=== PATIENT | female | born 1950 | race Two or more races ===

== ENCOUNTER 2019-01-30 17:59 | Inpatient (IN) | payer SELFPAY ==
[~2019-01-30] VITALS: Ht 149.9 cm; Wt 56.0 kg
[2019-01-30] MEDS ORDERED: METFORMIN HCL500 M1 ORAL (18:03)
[2019-01-30 18:13] VITALS: BP 128/53
--- NOTE | 2019-01-30 18:13 | NUR ---
ED Nurse Note: Pt walked in due to abd. pain with chills x 1 day. Also c/o swelling of her left foot on and off since surgery back in 2011 per family member. Denies CP and SOB. AAO x4, ambulates with steady gait. Left foot with mild swelling but non pitting.
--- NOTE | 2019-01-30 18:28 | Emergency Room Report ---
History of Present Illness General Chief Complaint: Abdominal Pain Source: Patient Present Illness HPI Patient is a 68-year-old female presents after increased epigastric abdominal pain. Patient states this began after eating a hamburger last night. Pain had been constant since then. Patient had prior history of gallstones. She reports having some subjective fever. She not been vomiting or having any diarrhea. She denies prior abdominal surgeries. Allergies: Coded Allergies: No Known Allergies (Unverified , 01/30/19) Patient History Past Medical History: see triage record Reviewed Nursing Documentation: PMH: Agreed; PSxH: Agreed Nursing Documentation-PMH Past Medical History: No History, Except For Hx Cardiac Problems: No Hx Hypertension: No Hx Pacemaker: No Hx Asthma: No Hx COPD: No Hx Diabetes: Yes Hx Cancer: No Hx Gastrointestinal Problems: No Hx Dialysis: No History Of Psychiatric Problem: No Hx Neurological Problems: No Hx Cerebrovascular Accident: No Hx Seizures: No Review of Systems All Other Systems: negative except mentioned in HPI Physical Exam Vital Signs Date Time Temp Pulse Resp B/P (MAP) Pulse Ox O2 Delivery O2 Flow Rate FiO2 01/30/19 18:03 99.1 78 16 142/69 (93) 95 Room Air Sp02 EP Interpretation: reviewed, normal General Appearance: normal inspection, well appearing, no apparent distress, alert Head: atraumatic ENT: normal ENT inspection, hearing grossly normal, normal voice Neck: normal inspection, full range of motion, supple, no bony tend Respiratory: normal inspection, lungs clear, normal breath sounds, no respiratory distress, no retraction, no wheezing Cardiovascular #1: regular rate, rhythm, no edema Gastrointestinal: normal inspection, normal bowel sounds, soft, no guarding, no hernia, tenderness - Tenderness to right upper abdomen Genitourinary: no CVA tenderness Musculoskeletal: normal inspection, back normal, normal range of motion Neurologic: normal inspection, alert, oriented x3, responsive, cage unloader III-XII nml as tested, speech normal Psychiatric: normal inspection, judgement/insight normal, mood/affect normal Medical Decision Making Diagnostic Impression: Primary Impression: Abdominal pain Qualified Codes: R10.13 - Epigastric pain Additional Impression: Choledocholithiasis ER Course Patient presented after persistent abdominal pain. Differential diagnoses included ischemic bowel, appendicitis, perforated viscus, cholecystitis, pancreatitis, abdominal aortic aneurysm, inferior myocardial infarction, viral gastroenteritis among others.patient was noted to have some persistent pain to the upper abdomen as well as guarding near the gallbladder. Abdominal ultrasound showed 13 mm CBD as well as dilated pancreatic duct. Patient was given pain medications.Patient was given IV Zosyn. Patient was noted to have a normal mental status. Patient does not appear to have cholangitis at this time. Dr. Guadarrama was contacted for inpatient surgical consult. Dr. Holcomb was contacted for inpatient management due to panel physician. Labs Test 01/30/19 18:45 White Blood Count 11.3 K/UL (4.8-10.8) Red Blood Count 4.12 M/UL (4.20-5.40) Hemoglobin 12.5 G/DL (12.0-16.0) Hematocrit 35.2 % (37.0-47.0) Mean Corpuscular Volume 86 FL (80-99) Mean Corpuscular Hemoglobin 30.3 PG (27.0-31.0) Mean Corpuscular Hemoglobin Concent 35.4 G/DL (32.0-36.0) Red Cell Distribution Width 11.9 % (11.6-14.8) Platelet Count 149 K/UL (150-450) Mean Platelet Volume 7.7 FL (6.5-10.1) Neutrophils (%) (Auto) 81.3 % (45.0-75.0) Lymphocytes (%) (Auto) 11.7 % (20.0-45.0) Monocytes (%) (Auto) 6.4 % (1.0-10.0) Eosinophils (%) (Auto) 0.2 % (0.0-3.0) Basophils (%) (Auto) 0.4 % (0.0-2.0) Urine Color Pale yellow Urine Appearance Clear Urine pH 6.5 (4.5-8.0) Urine Specific [place] 1.010 (1.005-1.035) Urine Protein Negative (NEGATIVE) Urine Glucose (UA) Negative (NEGATIVE) Urine Ketones Negative (NEGATIVE) Urine Blood 2+ (NEGATIVE) Urine Nitrite Negative (NEGATIVE) Urine Bilirubin Negative (NEGATIVE) Urine Urobilinogen Normal MG/DL (0.0-1.0) Urine Leukocyte Esterase 1+ (NEGATIVE) Urine RBC 2-4 /HPF (0 - 2) Urine WBC 0-2 /HPF (0 - 2) Urine Squamous Epithelial Cells Few /LPF (NONE/OCC) Urine Bacteria Few /HPF (NONE) Sodium Level 142 MMOL/L (136-145) Potassium Level 3.1 MMOL/L (3.5-5.1) Chloride Level 105 MMOL/L (98-107) Carbon Dioxide Level 29 MMOL/L (21-32) Anion Gap 8 mmol/L (5-15) Blood Urea Nitrogen 6 mg/dL (7-18) Creatinine 0.9 MG/DL (0.55-1.30) Estimat Glomerular Filtration Rate > 60 mL/min (>60) Glucose Level 137 MG/DL (74-106) Calcium Level 8.8 MG/DL (8.5-10.1) Total Bilirubin 0.5 MG/DL (0.2-1.0) Aspartate Amino Transf (AST/SGOT) 18 U/L (15-37) Alanine Aminotransferase (ALT/SGPT) 21 U/L (12-78) Alkaline Phosphatase 116 U/L (46-116) Troponin I 0.000 ng/mL (0.000-0.056) Total Protein 7.0 G/DL (6.4-8.2) Albumin 3.1 G/DL (3.4-5.0) Globulin 3.9 g/dL Albumin/Globulin Ratio 0.8 (1.0-2.7) Lipase 36 U/L (73-393) Last Vital Signs Date Time Temp Pulse Resp B/P (MAP) Pulse Ox O2 Delivery O2 Flow Rate FiO2 01/30/19 18:13 83 16 Room Air 01/30/19 18:13 99.1 128/53 99 Status: unchanged Disposition: ADMITTED INPATIENT Condition: Serious Dillon Edwards MD Jan 30, 2019 18:28
[2019-01-30] MEDS ORDERED: Morphine Sulfate 2mg/ml Inj(IV/IM USE ONLY) IVP ONE (18:30)
[2019-01-30 18:56] LABS: BASOPHILS % (AUTO) 0.4 % (0.0-2.0); EOSINOPHILS % (AUTO) 0.2 % (0.0-3.0); HEMATOCRIT 35.2 % (37.0-47.0); HEMOGLOBIN 12.5 G/DL (12.0-16.0); LYMPHOCYTES % (AUTO) 11.7 % (20.0-45.0); MEAN CORPUSCULAR VOLUME 86 FL (80-99); MONOCYTES % (AUTO) 6.4 % (1.0-10.0); NEUTROPHILS % (AUTO) 81.3 % (45.0-75.0); PLATELET COUNT 149 K/UL (150-450); RED BLOOD COUNT 4.12 M/UL (4.20-5.40); RED CELL DISTRIBUTION WIDTH 11.9 % (11.6-14.8); WHITE BLOOD COUNT 11.3 K/UL (4.8-10.8)
[2019-01-30 18:59] LABS: APPEARANCE,URINE CLEAR; BILIRUBIN, URINE NEGATIVE (NEGATIVE); COLOR,URINE PALE YELLOW; GLUCOSE, URINE (UA) NEGATIVE (NEGATIVE); KETONES,URINE NEGATIVE (NEGATIVE); LEUKOCYTE ESTERASE ,URINE 1+ (NEGATIVE); NITRITE,URINE NEGATIVE (NEGATIVE); PH,URINE 6.5 (4.5-8.0); PROTEIN,URINE NEGATIVE (NEGATIVE); UROBILINOGEN,URINE NORMAL MG/DL (0.0-1.0)
[2019-01-30 19:07] LABS: ANION GAP 8 mmol/L (5-15); BLOOD UREA NITROGEN 6 mg/dL (7-18); CALCIUM 8.8 MG/DL (8.5-10.1); CARBON DIOXIDE 29 MMOL/L (21-32); CHLORIDE 105 MMOL/L (98-107); CREATININE 0.9 MG/DL (0.55-1.30); POTASSIUM 3.1 MMOL/L (3.5-5.1); SODIUM 142 MMOL/L (136-145)
--- NOTE | 2019-01-30 19:10 | NUR ---
HAND-OFF: Report given to Aleksander CARRERO.
[2019-01-30 19:12] LABS: ALANINE AMINOTRANSFERASE 21 U/L (12-78); ALBUMIN 3.1 G/DL (3.4-5.0); ALBUMIN/GLOBULIN RATIO 0.8 (1.0-2.7); ALKALINE PHOSPHATASE 116 U/L (46-116); ASPARTATE AMINO TRANSFERASE 18 U/L (15-37); BILIRUBIN,TOTAL 0.5 MG/DL (0.2-1.0)
[2019-01-30] MEDS ORDERED: Piperacillin/Tazobactam 3.375 GM in NS 110 ML IVPB ONE (19:30)
--- NOTE | 2019-01-30 21:46 | NUR ---
NURSE NOTES: Telephone report received from ALISE Armijo (ED). Pt will be brought up to 301-2 soon.
[2019-01-30 21:50] VITALS: BP_SYST 132; BP_SYST 142; BP_DIAS 46; BP_DIAS 65
--- NOTE | 2019-01-30 21:50 | NUR ---
NURSE NOTES: Received pt from ED via gurney. Pt able to ambulate. Skin assessment done & skin intact. Oriented pt to facility. Pt a&ox4, Hungarian speaking only, in room air. Grand daughter at bedside. No s/s of acute distress & c/o 8/10 abdominal pain. VSS. Pt belongings checked & accounted for. IV site intact & S/L'd. Bed in lowest position, call light within reach. granddaughter to bring pt's home meds reyes. RN will call Dr. Holcomb for admission orders. Will continue to monitor. Addendum: 01/31/19 at 0013 by Delmi Pan RN @ 2230 informed of K level 3.1; new orders obtained.
--- NOTE | 2019-01-30 21:50 | NUR ---
ED Nurse Note: Pt admit to room 302-1, Pt is AO x 4times, VSS, on room air no distress. Report and belongings given to ALISE Awad.
--- NOTE | 2019-01-30 21:51 | NUR ---
NURSE NOTES: Sondra (granddaughter) contact #
[2019-01-30] MEDS ORDERED: ASPIRIN81 M3 PO (22:48)
[2019-01-30] MEDS ORDERED: LIPITOR80 MG ORAL (22:49)
[2019-01-30] MEDS ORDERED: TYLENOL325 M1 PO (22:50)
[2019-01-30] MEDS ORDERED: Morphine Sulfate 2mg/ml Inj(IV/IM USE ONLY) IVP PRN (23:15)
[2019-01-30] MEDS: D5NS 1,000 ML IV SCH (23:35)
[2019-01-31] VITALS (7 sets, daily range): BP systolic 94–117; BP diastolic 44–66
[2019-01-31] MEDS: Piperacillin/Tazobactam 3.375 GM in NS 110 ML IVPB SCH ×3 (05:46→23:30)
[2019-01-31] MEDS: Pantoprazole Inj IVP SCH (05:46)
[2019-01-31] MEDS: NovoLOG Insulin Flexpen SUBQ SCH ×4 (05:53→20:25)
[2019-01-31 06:25] LABS: BASOPHILS % (AUTO) 0.4 % (0.0-2.0); EOSINOPHILS % (AUTO) 0.5 % (0.0-3.0); HEMATOCRIT 34.1 % (37.0-47.0); HEMOGLOBIN 11.6 G/DL (12.0-16.0); LYMPHOCYTES % (AUTO) 13.9 % (20.0-45.0); MEAN CORPUSCULAR VOLUME 89 FL (80-99); MONOCYTES % (AUTO) 6.5 % (1.0-10.0); NEUTROPHILS % (AUTO) 78.7 % (45.0-75.0); PLATELET COUNT 139 K/UL (150-450); RED BLOOD COUNT 3.83 M/UL (4.20-5.40); RED CELL DISTRIBUTION WIDTH 12.1 % (11.6-14.8); WHITE BLOOD COUNT 10.5 K/UL (4.8-10.8)
[2019-01-31] MEDS ORDERED: NovoLOG Insulin Flexpen SUBQ SCH (06:30)
[2019-01-31 06:54] LABS: ALBUMIN 2.7 G/DL (3.4-5.0); ALBUMIN/GLOBULIN RATIO 0.8 (1.0-2.7); ALKALINE PHOSPHATASE 110 U/L (46-116); AMYLASE 16 U/L (25-115); ANION GAP 6 mmol/L (5-15); ASPARTATE AMINO TRANSFERASE 18 U/L (15-37); BILIRUBIN,TOTAL 0.5 MG/DL (0.2-1.0); BLOOD UREA NITROGEN 7 mg/dL (7-18); CALCIUM 8.2 MG/DL (8.5-10.1); CARBON DIOXIDE 27 MMOL/L (21-32); CHLORIDE 107 MMOL/L (98-107); CHOLESTEROL 121 MG/DL (< 200); CREATININE 0.7 MG/DL (0.55-1.30); HDL CHOLESTEROL 29 MG/DL (40-60); POTASSIUM 3.9 MMOL/L (3.5-5.1); SODIUM 140 MMOL/L (136-145); TRIGLYCERIDES 70 MG/DL (30-150)
[2019-01-31 07:21] LABS: ALANINE AMINOTRANSFERASE 26 U/L (12-78)
--- NOTE | 2019-01-31 07:33 | NUR ---
HAND-OFF: Report given to ALISE Myrick. Pt in stable condition. Rounds done.
--- NOTE | 2019-01-31 08:00 | NUR ---
NURSE NOTES: Received report from Delmi CARRERO, pt a/a/o x4 laying in bed with no signs of distress of other issues at this time. pt is NPO x ice chips and meds. pt has a right AC gauge#20 running D5NS@100ml/hr. plan for MRCP this morning. call light within reach, bed in lowest position, side rales up x2. I will f/u as needed.
[2019-01-31] MEDS: D5NS 1,000 ML IV SCH ×3 (08:34→19:15)
--- NOTE | 2019-01-31 08:36 | General Progress Note ---
Assessment/Plan Assessment/Plan: abd pain dilated CBD ? choledocholithiasis normal LFTS plan MRCP ERCP if needed fu labs fu surg consult Subjective ROS Limited/Unobtainable: Yes Allergies: Coded Allergies: No Known Allergies (Unverified , 01/30/19) Objective Last 24 Hour Vital Signs Date Time Temp Pulse Resp B/P (MAP) Pulse Ox O2 Delivery O2 Flow Rate FiO2 01/31/19 08:00 99.0 76 17 117/66 (83) 94 01/31/19 04:00 99.3 67 16 114/61 (78) 32 01/31/19 00:25 99.8 75 17 114/51 (72) 93 01/30/19 22:00 98.7 76 16 132/65 100 Room Air 01/30/19 21:51 Room Air 01/30/19 21:50 99.3 76 16 142/46 (78) 93 01/30/19 21:50 98.7 87 16 132/65 100 Room Air 01/30/19 18:13 83 16 Room Air 01/30/19 18:13 99.1 83 16 128/53 99 Room Air 01/30/19 18:03 99.1 78 16 142/69 (93) 95 Room Air Intake and Output 01/30/19 01/31/19 19:00 07:00 Intake Total 400 ml Balance 400 ml Intake IV Total 400 ml # Voids 1 1 Laboratory Tests 01/30/19 18:45: White Blood Count 11.3H, Red Blood Count 4.12L, Hemoglobin 12.5, Hematocrit 35.2L, Mean Corpuscular Volume 86, Mean Corpuscular Hemoglobin 30.3, Mean Corpuscular Hemoglobin Concent 35.4, Red Cell Distribution Width 11.9, Platelet Count 149L, Mean Platelet Volume 7.7, Neutrophils (%) (Auto) 81.3H, Lymphocytes (%) (Auto) 11.7L, Monocytes (%) (Auto) 6.4, Eosinophils (%) (Auto) 0.2, Basophils (%) (Auto) 0.4, Urine Color Pale yellow, Urine Appearance Clear, Urine pH 6.5, Urine Specific [place] 1.010, Urine Protein Negative, Urine Glucose (UA) Negative, Urine Ketones Negative, Urine Blood 2+H, Urine Nitrite Negative, Urine Bilirubin Negative, Urine Urobilinogen Normal, Urine Leukocyte Esterase 1+H, Urine RBC 2-4H, Urine WBC 0-2, Urine Squamous Epithelial Cells Few , Urine Bacteria Few, Sodium Level 142, Potassium Level 3.1L, Chloride Level 105 , Carbon Dioxide Level 29, Anion Gap 8, Blood Urea Nitrogen 6L, Creatinine 0.9, Estimat Glomerular Filtration Rate > 60, Glucose Level 137H, Calcium Level 8.8, Total Bilirubin 0.5, Aspartate Amino Transf (AST/SGOT) 18, Alanine Aminotransferase (ALT/SGPT) 21, Alkaline Phosphatase 116, Troponin I 0.000, Total Protein 7.0, Albumin 3.1L, Globulin 3.9, Albumin/Globulin Ratio 0.8L, Lipase 36L 01/31/19 05:10: White Blood Count 10.5, Red Blood Count 3.83L, Hemoglobin 11.6L, Hematocrit 34.1L, Mean Corpuscular Volume 89, Mean Corpuscular Hemoglobin 30.2, Mean Corpuscular Hemoglobin Concent 33.9, Red Cell Distribution Width 12.1, Platelet Count 139L, Mean Platelet Volume 9.1, Neutrophils (%) (Auto) 78.7H, Lymphocytes (%) (Auto) 13.9L, Monocytes (%) (Auto) 6.5, Eosinophils (%) (Auto) 0.5, Basophils (%) (Auto) 0.4, Sodium Level 140, Potassium Level 3.9, Chloride Level 107, Carbon Dioxide Level 27, Anion Gap 6, Blood Urea Nitrogen 7, Creatinine 0.7 , Estimat Glomerular Filtration Rate > 60, Glucose Level 134H, Calcium Level 8.2L, Total Bilirubin 0.5, Aspartate Amino Transf (AST/SGOT) 18, Alanine Aminotransferase (ALT/SGPT) 26, Alkaline Phosphatase 110, Total Protein 6.3L, Albumin 2.7L, Globulin 3.6, Albumin/Globulin Ratio 0.8L, Lipase 30L, Hemoglobin A1c 7.3H, Triglycerides Level 70, Cholesterol Level 121, LDL Cholesterol 76, HDL Cholesterol 29L, Cholesterol/HDL Ratio 4.2, Amylase Level 16L, Thyroid Stimulating Hormone (TSH) 0.827 Height (Feet): 4 Height (Inches): 11.00 Weight (Pounds): 110 General Appearance: no apparent distress, alert Neck: supple Cardiovascular: normal rate Respiratory/Chest: decreased breath sounds Abdomen: soft, tender Extremities: non-tender Vosoghi,Anshul MD Jan 31, 2019 08:36
[2019-01-31] MEDS ORDERED: Enoxaparin 40mg Inj SUBQ SCH (09:00)
--- NOTE | 2019-01-31 10:15 | NUR ---
NURSE NOTES: pt left the floor for MRCP test. with no signs of distress or other issues at this time. I will f/u as needed.
--- NOTE | 2019-01-31 11:34 | Diagnostic Imaging Report ---
Indication: Abdominal pain Technique: Anand-scale and duplex images of the upper abdomen were obtained Comparison: none Findings: Gallbladder demonstrates gallstones in the neck. No gallbladder wall thickening or pericholecystic fluid is also sludge in the gallbladder. Technologist reports that the sonographic Abdalla's sign is positive. Common bile duct measures 13 mm in diameter. There is mild central intrahepatic biliary ductal dilatation.. Liver demonstrates normal echogenicity, no focal abnormality. Portal vein and hepatic veins are patent. The pancreas demonstrates heterogeneous echogenicity and likely multiple calcifications. Spleen is unremarkable. Left kidney measures 9.7 cm in length. Right kidney measures 11.5 cm length. Both kidneys demonstrate normal echogenicity. There is no hydronephrosis. No focal abnormality . Abdominal aorta is partially obscured by bowel gas, visualized portions are non-aneurysmal . Impression: Cholelithiasis and gallbladder sludge. Positive sonographic Abdalla's sign raises concern for acute cholecystitis. Consider hepatobiliary nuclear scanning if there is high clinical suspicion Dilated common bile duct and mild central intrahepatic biliary ductal dilatation. This is concerning for downstream obstruction. Heterogeneous pancreas with possible calcifications, could indicate chronic pancreatitis Note incomplete visualization of the distal abdominal aorta
--- NOTE | 2019-01-31 11:49 | Consultation ---
History of Present Illness General Date patient seen: Jan 31, 2019 Reason for Hospitalization: Abdominal Pain Present Illness HPI Patient is a 68-year-old female presents after increased epigastric abdominal pain. Patient states this began after eating a hamburger last night. Pain had been constant since then. Patient had prior history of gallstones. She reports having some subjective fever. She not been vomiting or having any diarrhea. She denies prior abdominal surgeries. mild leukocytosis, nml lft's, afebrile, HD stable, elevated Ha1c. US as below Allergies: Coded Allergies: No Known Allergies (Unverified , 01/30/19) Medication History Scheduled Acetaminophen (Tylenol), 500 MG PO EVERY 6 HOURS, (Reported) Aspirin (Aspirin), 81 MG PO DAILY, (Reported) Atorvastatin (Lipitor), 40 MG ORAL DAILY, (Reported) Metformin Hcl* (Metformin Hcl*), Unknown Dose ORAL TWICE A DAY, (Reported) Patient History History Provided By: Patient, Medical Record, PMD Healthcare decision maker Resuscitation status Full Code Advanced Directive on File Past Medical/Surgical History Past Medical/Surgical History: (1) Choledocholithiasis Review of Systems Review of Symptoms General ROS: no weight loss or fever Psychological ROS: no depression or mood changes, no memory loss Ophthalmic ROS: no visual changes or eye irritation ENT ROS: no nasal congestion, hearing loss, dizziness Allergy and Immunology ROS: no allergic symptoms or urticaria Hematological and Lymphatic ROS: no swollen glands, unusual bleeding or bruising Endocrine ROS: no polyuria, polydipsia, weight changes, temperature intolerance Respiratory ROS: no cough, shortness of breath, or wheezing Cardiovascular ROS: no chest pain or dyspnea on exertion Gastrointestinal ROS: denies abdominal pain, bright red blood in stool. Musculoskeletal ROS: no myalgias or arthralgias Neurological ROS: no TIA or stroke symptoms Dermatological ROS: no new or changing skin lesions, rashes or pruritis Physical Exam Physical Exam General appearance: alert, cooperative, no distress, appears stated age Head: Normocephalic, without obvious abnormality, atraumatic Eyes: conjunctivae/corneas clear. PERRL, EOM's intact. Fundi benign Throat: Lips, mucosa, and tongue normal. Teeth and gums normal Neck: supple, symmetrical, trachea midline, no adenopathy, thyroid: not enlarged, symmetric, no tenderness/mass/nodules, no carotid bruit and no JVD Lungs: clear to auscultation bilaterally Heart: regular rate and rhythm, S1, S2 normal, no murmur, click, rub or gallop Abdomen: soft, tender. Bowel sounds normal. No masses, no organomegaly Extremities: extremities normal, atraumatic, no cyanosis or edema Pulses: 2+ and symmetric Skin: Skin color, texture, turgor normal. No rashes or lesions Neurologic: Grossly normal Last 24 Hour Vital Signs Date Time Temp Pulse Resp B/P (MAP) Pulse Ox O2 Delivery O2 Flow Rate FiO2 01/31/19 08:00 99.0 76 17 117/66 (83) 94 01/31/19 04:00 99.3 67 16 114/61 (78) 32 01/31/19 00:25 99.8 75 17 114/51 (72) 93 01/30/19 22:00 98.7 76 16 132/65 100 Room Air 01/30/19 21:51 Room Air 01/30/19 21:50 99.3 76 16 142/46 (78) 93 01/30/19 21:50 98.7 87 16 132/65 100 Room Air 01/30/19 18:13 83 16 Room Air 01/30/19 18:13 99.1 83 16 128/53 99 Room Air 01/30/19 18:03 99.1 78 16 142/69 (93) 95 Room Air Intake and Output 01/30/19 01/31/19 18:59 06:59 Intake Total 400 ml Balance 400 ml Intake IV Total 400 ml # Voids 1 1 Laboratory Tests Test 01/30/19 18:45 01/31/19 05:10 White Blood Count 11.3 K/UL (4.8-10.8) H 10.5 K/UL (4.8-10.8) Red Blood Count 4.12 M/UL (4.20-5.40) L 3.83 M/UL (4.20-5.40) L Hemoglobin 12.5 G/DL (12.0-16.0) 11.6 G/DL (12.0-16.0) L Hematocrit 35.2 % (37.0-47.0) L 34.1 % (37.0-47.0) L Mean Corpuscular Volume 86 FL (80-99) 89 FL (80-99) Mean Corpuscular Hemoglobin 30.3 PG (27.0-31.0) 30.2 PG (27.0-31.0) Mean Corpuscular Hemoglobin Concent 35.4 G/DL (32.0-36.0) 33.9 G/DL (32.0-36.0) Red Cell Distribution Width 11.9 % (11.6-14.8) 12.1 % (11.6-14.8) Platelet Count 149 K/UL (150-450) L 139 K/UL (150-450) L Mean Platelet Volume 7.7 FL (6.5-10.1) 9.1 FL (6.5-10.1) Neutrophils (%) (Auto) 81.3 % (45.0-75.0) H 78.7 % (45.0-75.0) H Lymphocytes (%) (Auto) 11.7 % (20.0-45.0) L 13.9 % (20.0-45.0) L Monocytes (%) (Auto) 6.4 % (1.0-10.0) 6.5 % (1.0-10.0) Eosinophils (%) (Auto) 0.2 % (0.0-3.0) 0.5 % (0.0-3.0) Basophils (%) (Auto) 0.4 % (0.0-2.0) 0.4 % (0.0-2.0) Urine Color Pale yellow Urine Appearance Clear Urine pH 6.5 (4.5-8.0) Urine Specific [place] 1.010 (1.005-1.035) Urine Protein Negative (NEGATIVE) Urine Glucose (UA) Negative (NEGATIVE) Urine Ketones Negative (NEGATIVE) Urine Blood 2+ (NEGATIVE) H Urine Nitrite Negative (NEGATIVE) Urine Bilirubin Negative (NEGATIVE) Urine Urobilinogen Normal MG/DL (0.0-1.0) Urine Leukocyte Esterase 1+ (NEGATIVE) H Urine RBC 2-4 /HPF (0 - 2) H Urine WBC 0-2 /HPF (0 - 2) Urine Squamous Epithelial Cells Few /LPF (NONE/OCC) Urine Bacteria Few /HPF (NONE) Sodium Level 142 MMOL/L (136-145) 140 MMOL/L (136-145) Potassium Level 3.1 MMOL/L (3.5-5.1) L 3.9 MMOL/L (3.5-5.1) Chloride Level 105 MMOL/L (98-107) 107 MMOL/L (98-107) Carbon Dioxide Level 29 MMOL/L (21-32) 27 MMOL/L (21-32) Anion Gap 8 mmol/L (5-15) 6 mmol/L (5-15) Blood Urea Nitrogen 6 mg/dL (7-18) L 7 mg/dL (7-18) Creatinine 0.9 MG/DL (0.55-1.30) 0.7 MG/DL (0.55-1.30) Estimat Glomerular Filtration Rate > 60 mL/min (>60) > 60 mL/min (>60) Glucose Level 137 MG/DL (74-106) H 134 MG/DL (74-106) H Calcium Level 8.8 MG/DL (8.5-10.1) 8.2 MG/DL (8.5-10.1) L Total Bilirubin 0.5 MG/DL (0.2-1.0) 0.5 MG/DL (0.2-1.0) Aspartate Amino Transf (AST/SGOT) 18 U/L (15-37) 18 U/L (15-37) Alanine Aminotransferase (ALT/SGPT) 21 U/L (12-78) 26 U/L (12-78) Alkaline Phosphatase 116 U/L (46-116) 110 U/L (46-116) Troponin I 0.000 ng/mL (0.000-0.056) Total Protein 7.0 G/DL (6.4-8.2) 6.3 G/DL (6.4-8.2) L Albumin 3.1 G/DL (3.4-5.0) L 2.7 G/DL (3.4-5.0) L Globulin 3.9 g/dL 3.6 g/dL Albumin/Globulin Ratio 0.8 (1.0-2.7) L 0.8 (1.0-2.7) L Lipase 36 U/L (73-393) L 30 U/L (73-393) L Hemoglobin A1c 7.3 % (4.3-6.0) H Triglycerides Level 70 MG/DL (30-150) Cholesterol Level 121 MG/DL (< 200) LDL Cholesterol 76 mg/dL (<100) HDL Cholesterol 29 MG/DL (40-60) L Cholesterol/HDL Ratio 4.2 (3.3-4.4) Amylase Level 16 U/L (25-115) L Thyroid Stimulating Hormone (TSH) 0.827 uiU/mL (0.358-3.740) Height (Feet): 4 Height (Inches): 11.00 Weight (Pounds): 110 Medications Current Medications Medications (Trade) Dose Ordered Sig/J Luis Route PRN Reason Start Time Stop Time Status Last Admin Dose Admin Dextrose (Dextrose 50%) 25 ml Q30M PRN IV Hypoglycemia 01/30/19 23:15 03/01/19 23:14 Dextrose/Sodium Chloride 1,000 ml @ 100 mls/hr Q10H IV 01/30/19 23:15 03/01/19 23:14 01/30/19 23:35 Enoxaparin Sodium (Lovenox) 40 mg DAILY SUBQ 01/31/19 09:00 03/02/19 08:59 01/31/19 08:32 Insulin Aspart (NovoLOG) AC+HS SUBQ 01/31/19 06:30 03/02/19 06:29 01/31/19 05:53 Morphine Sulfate (Morphine Sulfate) 2 mg Q4H PRN IVP For Pain (4-10) 01/30/19 23:15 02/06/19 23:14 Ondansetron HCl (Zofran) 4 mg Q6H PRN IVP Nausea & Vomiting 01/30/19 23:15 03/01/19 23:14 Pantoprazole (Protonix) 40 mg DAILY@0630 IVP 01/31/19 06:30 03/02/19 06:29 01/31/19 05:46 Piperacillin Sod/ Tazobactam Sod 3.375 gm/Sodium Chloride 110 ml @ 27.5 mls/hr EVERY 8 HOURS IVPB 01/31/19 06:00 02/05/19 05:59 01/31/19 05:46 Assessment/Plan Problem List: (1) Choledocholithiasis Assessment & Plan: 68F with epi/ruq abd pain, hx of gallstones, leukocytosis, afebrile, nml lft's. US as below npo iv fluids iv abx MRCP will follow with recs thank you Findings: Gallbladder demonstrates gallstones in the neck. No gallbladder wall thickening or pericholecystic fluid is also sludge in the gallbladder. Technologist reports that the sonographic Abdalla's sign is positive. Common bile duct measures 13 mm in diameter. There is mild central intrahepatic biliary ductal dilatation.. Liver demonstrates normal echogenicity, no focal abnormality. Portal vein and hepatic veins are patent. The pancreas demonstrates heterogeneous echogenicity and likely multiple calcifications. Spleen is unremarkable. Left kidney measures 9.7 cm in length. Right kidney measures 11.5 cm length. Both kidneys demonstrate normal echogenicity. There is no hydronephrosis. No focal abnormality . Abdominal aorta is partially obscured by bowel gas, visualized portions are non-aneurysmal . Impression: Cholelithiasis and gallbladder sludge. Positive sonographic Abdalla' s sign raises concern for acute cholecystitis. Consider hepatobiliary nuclear scanning if there is high clinical suspicion Dilated common bile duct and mild central intrahepatic biliary ductal dilatation. This is concerning for downstream obstruction. Heterogeneous pancreas with possible calcifications, could indicate chronic pancreatitis Note incomplete visualization of the distal abdominal aorta ICD Codes: K80.50 - Calculus of bile duct without cholangitis or cholecystitis without obstruction SNOMED: [id number] [facility] Hospital declaration INPATIENT level of care is warranted for this patient because patient is a 89 year old with who presents with suspicion of . I have a high level of concern because . Patient is at high risk for . Plan of care/treatment include . Patient care is expected to be greater than 2 midnights. OBSERVATION level of care is warranted for this patient. Patient is a 89 year old with who presents with . Patient will be admitted for 1 midnight, but if additional night(s) is/are necessary, patient will be converted to inpatient status for the entire hospitalization Disposition: Once the patient is stable to leave the hospital, I anticipate the patient will likely be discharged to the following environment: Estimated discharge date: I spent 70 minutes on this patient's case, and minutes was dedicated to counseling and/or care coordination. MIPS (Merit-based Incentive Payment System) Applicable CPT: 71313, 56271 CHECK ALL THAT ARE MET: Measure #5 (CHF): All ages. Prescribe GRACE/ARB upon discharge for patients with left ventricular systolic dysfunction. If not, the reason is clearly documented in the medical chart. Measure #8 (CHF): All ages. Prescribe a beta ade upon discharge for patients with left ventricular systolic dysfunction. If not, the reason is clearly documented in the medical chart. Measure #47 Advance care plan or surrogate decision maker documented in the medical record. Measure #130 The provider has documented, updated, or reviewed the patients current medication list and has documented it in the patients note. Measure #374 (All): Send report to referring provider. Measure #407(Sepsis due to MSSA bacteremia): Age 18+ Patient treated with a beta-lactam antibiotic (Nafcillin, Oxacillin or Cefazolin) as definitive therapy. MEDICAL COMPLEXITY High complexity medical decision making (need 2/3 categories) Problem - need 4 points Acute/new problem with new plan for workup (4 points, 1 max) Acute/new problem without additional workup (3 points, 1 max) Unstable chronic problem actively being managed (2 point each, 2 max) Stable chronic problem actively being managed (1 point each, 2 max) Self-limited/transient process (constipation, muscle ache, etc) (1 point each , 2 max) Data - need 4 points Reviewed labs/imaging studies (1 points, 2 max) Independent review of imaging (EKG, xrays, etc) (2 points, 2 max) Discussed case with consult/other MD/RN (2 points, 2 max) High Risk - qualify if have one of the following: Severe exacerbation of acute problem, acute mental status change, IV narcotics , monitoring drug levels (vancomycin, INR, tacrolimus etc) Rudy Guadarrama Jan 31, 2019 11:49
--- NOTE | 2019-01-31 12:59 | Diagnostic Imaging Report ---
Indication: Abdominal pain, dilated common bile duct on recent sonogram Technique: Coronal and axial single shot fast spin-echo breath-hold, axial T2 FRFSE, 2-D thick slab MRCP, AXIAL 2-D FIESTA fat saturated, axial 3-D dual echo breath-hold, water weighted axial LAVA FLEX, revealed 3-D MRCP images were obtained of the abdomen. MIP reconstructions were generated of the bile ducts Comparison: Reference made to abdominal sonogram 01/30/2019 Findings: The gallbladder demonstrates a fold in the fundus, probably representing so-called phrygian cap anatomy. It also demonstrates a gallbladder neck calculus. The wall does not appear to be thickened and there is no significant pericholecystic inflammation. The common bile duct is dilated, measuring up to 13 mm in diameter. There is tapering to normal caliber at the ampulla, and no intraluminal filling defects are demonstrated. On the axial T2 images, there is suggestion of a prominent papilla protruding into the duodenal lumen. There is mild intrahepatic biliary ductal dilatation. The pancreatic duct is markedly dilated, measuring 12 mm in diameter. Within the downstream pancreatic duct near the ampulla, there is a low signal filling defect measuring approximately 1 cm in diameter. There are innumerable ectatic pancreatic branch ducts as well. No definite pancreatic head mass demonstrated. The liver, spleen, adrenals are unremarkable. A cortical cyst and a parapelvic cyst are seen in the left kidney. The right kidney is unremarkable. The included pelvic viscera are unremarkable. Impression: Markedly dilated pancreatic duct, with evidence of a 1 cm stone within the downstream pancreatic duct near the ampulla. Uncertain as to whether the ductal dilatation is due to obstruction by stone, versus related to chronic calcifying pancreatitis (pancreatic calcifications demonstrated on recent sonogram post (versus occult pancreatic head mass. Consider further evaluation with endoscopic sonography. Dilated common bile duct, without a definite common duct stone. There may be prominence to the papilla, and ampullary tumor is therefore not excludable. Cholelithiasis Note phrygian cap anatomy to the gallbladder-normal anatomic variant Incidental findings of left renal parapelvic and cortical cysts
--- NOTE | 2019-01-31 13:37 | History & Physical ---
History and Physical History & Physicial Seen and examined. Dictation on 0133 hrs Gilberto Holcomb MD Jan 31, 2019 13:37
--- NOTE | 2019-01-31 13:38 | General Progress Note ---
Assessment/Plan Assessment/Plan: Full Dictation in progress A/P: 1- Acute Billiary colic 2- DM Plan: MRCP notres from GI and Surgeon are reviewed Subjective Allergies: Coded Allergies: No Known Allergies (Unverified , 01/30/19) Objective Last 24 Hour Vital Signs Date Time Temp Pulse Resp B/P (MAP) Pulse Ox O2 Delivery O2 Flow Rate FiO2 01/31/19 08:00 99.0 76 17 117/66 (83) 94 01/31/19 04:00 99.3 67 16 114/61 (78) 32 01/31/19 00:25 99.8 75 17 114/51 (72) 93 01/30/19 22:00 98.7 76 16 132/65 100 Room Air 01/30/19 21:51 Room Air 01/30/19 21:50 99.3 76 16 142/46 (78) 93 01/30/19 21:50 98.7 87 16 132/65 100 Room Air 01/30/19 18:13 83 16 Room Air 01/30/19 18:13 99.1 83 16 128/53 99 Room Air 01/30/19 18:03 99.1 78 16 142/69 (93) 95 Room Air Intake and Output 01/30/19 01/31/19 19:00 07:00 Intake Total 400 ml Balance 400 ml Intake IV Total 400 ml # Voids 1 1 Laboratory Tests 01/30/19 18:45: White Blood Count 11.3H, Red Blood Count 4.12L, Hemoglobin 12.5, Hematocrit 35.2L, Mean Corpuscular Volume 86, Mean Corpuscular Hemoglobin 30.3, Mean Corpuscular Hemoglobin Concent 35.4, Red Cell Distribution Width 11.9, Platelet Count 149L, Mean Platelet Volume 7.7, Neutrophils (%) (Auto) 81.3H, Lymphocytes (%) (Auto) 11.7L, Monocytes (%) (Auto) 6.4, Eosinophils (%) (Auto) 0.2, Basophils (%) (Auto) 0.4, Urine Color Pale yellow, Urine Appearance Clear, Urine pH 6.5, Urine Specific [place] 1.010, Urine Protein Negative, Urine Glucose (UA) Negative, Urine Ketones Negative, Urine Blood 2+H, Urine Nitrite Negative, Urine Bilirubin Negative, Urine Urobilinogen Normal, Urine Leukocyte Esterase 1+H, Urine RBC 2-4H, Urine WBC 0-2, Urine Squamous Epithelial Cells Few , Urine Bacteria Few, Sodium Level 142, Potassium Level 3.1L, Chloride Level 105 , Carbon Dioxide Level 29, Anion Gap 8, Blood Urea Nitrogen 6L, Creatinine 0.9, Estimat Glomerular Filtration Rate > 60, Glucose Level 137H, Calcium Level 8.8, Total Bilirubin 0.5, Aspartate Amino Transf (AST/SGOT) 18, Alanine Aminotransferase (ALT/SGPT) 21, Alkaline Phosphatase 116, Troponin I 0.000, Total Protein 7.0, Albumin 3.1L, Globulin 3.9, Albumin/Globulin Ratio 0.8L, Lipase 36L 01/31/19 05:10: White Blood Count 10.5, Red Blood Count 3.83L, Hemoglobin 11.6L, Hematocrit 34.1L, Mean Corpuscular Volume 89, Mean Corpuscular Hemoglobin 30.2, Mean Corpuscular Hemoglobin Concent 33.9, Red Cell Distribution Width 12.1, Platelet Count 139L, Mean Platelet Volume 9.1, Neutrophils (%) (Auto) 78.7H, Lymphocytes (%) (Auto) 13.9L, Monocytes (%) (Auto) 6.5, Eosinophils (%) (Auto) 0.5, Basophils (%) (Auto) 0.4, Sodium Level 140, Potassium Level 3.9, Chloride Level 107, Carbon Dioxide Level 27, Anion Gap 6, Blood Urea Nitrogen 7, Creatinine 0.7 , Estimat Glomerular Filtration Rate > 60, Glucose Level 134H, Calcium Level 8.2L, Total Bilirubin 0.5, Aspartate Amino Transf (AST/SGOT) 18, Alanine Aminotransferase (ALT/SGPT) 26, Alkaline Phosphatase 110, Total Protein 6.3L, Albumin 2.7L, Globulin 3.6, Albumin/Globulin Ratio 0.8L, Lipase 30L, Hemoglobin A1c 7.3H, Triglycerides Level 70, Cholesterol Level 121, LDL Cholesterol 76, HDL Cholesterol 29L, Cholesterol/HDL Ratio 4.2, Amylase Level 16L, Thyroid Stimulating Hormone (TSH) 0.827 Height (Feet): 4 Height (Inches): 11.00 Weight (Pounds): 110 Gilberto Holcomb MD Jan 31, 2019 13:38
--- NOTE | 2019-01-31 15:38 | NUR ---
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 99.2 HR 78 RR 16 B/P 142/69 WBC 11.3 K 3.1 LIPASE 37 UA+ BLOOD LEUKOCYTE ESTERASE RBC ABD US=CHOLELITHIASIS CT ABDOMINAL= CHOLELITHIASIS IS: IV BOLUS NS ZOFRAN IV ZOSYN IV MORPHINE IV ADMITTED TO MED/SURG@ 2222 MED/SURG STATUS DCP RETURN HOME
--- NOTE | 2019-01-31 15:39 | Infectious Diseases Prog Note ---
Assessment/Plan Problems: (1) Choledocholithiasis Assessment & Plan: with no gallbladder wall thickening or edema or fluids around it, doubt cholecystitis , await MRCP , continue zosyn empirically (2) Abdominal pain Assessment & Plan: due to the above with possible passing stone, continue pain management as primary Subjective Allergies: Coded Allergies: No Known Allergies (Unverified , 01/30/19) Objective Vital Signs Last 24 Hour Vital Signs Date Time Temp Pulse Resp B/P (MAP) Pulse Ox O2 Delivery O2 Flow Rate FiO2 01/31/19 12:00 98.4 56 18 99/44 (62) 98 01/31/19 09:00 Room Air 01/31/19 08:00 99.0 76 17 117/66 (83) 94 01/31/19 04:00 99.3 67 16 114/61 (78) 32 01/31/19 00:25 99.8 75 17 114/51 (72) 93 01/30/19 22:00 98.7 76 16 132/65 100 Room Air 01/30/19 21:51 Room Air 01/30/19 21:50 99.3 76 16 142/46 (78) 93 01/30/19 21:50 98.7 87 16 132/65 100 Room Air 01/30/19 18:13 83 16 Room Air 01/30/19 18:13 99.1 83 16 128/53 99 Room Air 01/30/19 18:03 99.1 78 16 142/69 (93) 95 Room Air Height (Feet): 4 Height (Inches): 11.00 Weight (Pounds): 110 Laboratory Tests Test 01/30/19 18:45 01/31/19 05:10 White Blood Count 11.3 K/UL (4.8-10.8) H 10.5 K/UL (4.8-10.8) Red Blood Count 4.12 M/UL (4.20-5.40) L 3.83 M/UL (4.20-5.40) L Hemoglobin 12.5 G/DL (12.0-16.0) 11.6 G/DL (12.0-16.0) L Hematocrit 35.2 % (37.0-47.0) L 34.1 % (37.0-47.0) L Mean Corpuscular Volume 86 FL (80-99) 89 FL (80-99) Mean Corpuscular Hemoglobin 30.3 PG (27.0-31.0) 30.2 PG (27.0-31.0) Mean Corpuscular Hemoglobin Concent 35.4 G/DL (32.0-36.0) 33.9 G/DL (32.0-36.0) Red Cell Distribution Width 11.9 % (11.6-14.8) 12.1 % (11.6-14.8) Platelet Count 149 K/UL (150-450) L 139 K/UL (150-450) L Mean Platelet Volume 7.7 FL (6.5-10.1) 9.1 FL (6.5-10.1) Neutrophils (%) (Auto) 81.3 % (45.0-75.0) H 78.7 % (45.0-75.0) H Lymphocytes (%) (Auto) 11.7 % (20.0-45.0) L 13.9 % (20.0-45.0) L Monocytes (%) (Auto) 6.4 % (1.0-10.0) 6.5 % (1.0-10.0) Eosinophils (%) (Auto) 0.2 % (0.0-3.0) 0.5 % (0.0-3.0) Basophils (%) (Auto) 0.4 % (0.0-2.0) 0.4 % (0.0-2.0) Urine Color Pale yellow Urine Appearance Clear Urine pH 6.5 (4.5-8.0) Urine Specific [place] 1.010 (1.005-1.035) Urine Protein Negative (NEGATIVE) Urine Glucose (UA) Negative (NEGATIVE) Urine Ketones Negative (NEGATIVE) Urine Blood 2+ (NEGATIVE) H Urine Nitrite Negative (NEGATIVE) Urine Bilirubin Negative (NEGATIVE) Urine Urobilinogen Normal MG/DL (0.0-1.0) Urine Leukocyte Esterase 1+ (NEGATIVE) H Urine RBC 2-4 /HPF (0 - 2) H Urine WBC 0-2 /HPF (0 - 2) Urine Squamous Epithelial Cells Few /LPF (NONE/OCC) Urine Bacteria Few /HPF (NONE) Sodium Level 142 MMOL/L (136-145) 140 MMOL/L (136-145) Potassium Level 3.1 MMOL/L (3.5-5.1) L 3.9 MMOL/L (3.5-5.1) Chloride Level 105 MMOL/L (98-107) 107 MMOL/L (98-107) Carbon Dioxide Level 29 MMOL/L (21-32) 27 MMOL/L (21-32) Anion Gap 8 mmol/L (5-15) 6 mmol/L (5-15) Blood Urea Nitrogen 6 mg/dL (7-18) L 7 mg/dL (7-18) Creatinine 0.9 MG/DL (0.55-1.30) 0.7 MG/DL (0.55-1.30) Estimat Glomerular Filtration Rate > 60 mL/min (>60) > 60 mL/min (>60) Glucose Level 137 MG/DL (74-106) H 134 MG/DL (74-106) H Calcium Level 8.8 MG/DL (8.5-10.1) 8.2 MG/DL (8.5-10.1) L Total Bilirubin 0.5 MG/DL (0.2-1.0) 0.5 MG/DL (0.2-1.0) Aspartate Amino Transf (AST/SGOT) 18 U/L (15-37) 18 U/L (15-37) Alanine Aminotransferase (ALT/SGPT) 21 U/L (12-78) 26 U/L (12-78) Alkaline Phosphatase 116 U/L (46-116) 110 U/L (46-116) Troponin I 0.000 ng/mL (0.000-0.056) Total Protein 7.0 G/DL (6.4-8.2) 6.3 G/DL (6.4-8.2) L Albumin 3.1 G/DL (3.4-5.0) L 2.7 G/DL (3.4-5.0) L Globulin 3.9 g/dL 3.6 g/dL Albumin/Globulin Ratio 0.8 (1.0-2.7) L 0.8 (1.0-2.7) L Lipase 36 U/L (73-393) L 30 U/L (73-393) L Hemoglobin A1c 7.3 % (4.3-6.0) H Triglycerides Level 70 MG/DL (30-150) Cholesterol Level 121 MG/DL (< 200) LDL Cholesterol 76 mg/dL (<100) HDL Cholesterol 29 MG/DL (40-60) L Cholesterol/HDL Ratio 4.2 (3.3-4.4) Amylase Level 16 U/L (25-115) L Thyroid Stimulating Hormone (TSH) 0.827 uiU/mL (0.358-3.740) Current Medications Medications (Trade) Dose Ordered Sig/J Luis Route PRN Reason Start Time Stop Time Status Last Admin Dose Admin Dextrose (Dextrose 50%) 25 ml Q30M PRN IV Hypoglycemia 01/30/19 23:15 03/01/19 23:14 Dextrose/Sodium Chloride 1,000 ml @ 100 mls/hr Q10H IV 01/30/19 23:15 03/01/19 23:14 01/30/19 23:35 Enoxaparin Sodium (Lovenox) 40 mg DAILY SUBQ 01/31/19 09:00 03/02/19 08:59 01/31/19 08:32 Insulin Aspart (NovoLOG) AC+HS SUBQ 01/31/19 06:30 03/02/19 06:29 01/31/19 12:32 Morphine Sulfate (Morphine Sulfate) 2 mg Q4H PRN IVP For Pain (4-10) 01/30/19 23:15 02/06/19 23:14 Ondansetron HCl (Zofran) 4 mg Q6H PRN IVP Nausea & Vomiting 01/30/19 23:15 03/01/19 23:14 Pantoprazole (Protonix) 40 mg DAILY@0630 IVP 01/31/19 06:30 03/02/19 06:29 01/31/19 05:46 Piperacillin Sod/ Tazobactam Sod 3.375 gm/Sodium Chloride 110 ml @ 27.5 mls/hr EVERY 8 HOURS IVPB 01/31/19 06:00 02/05/19 05:59 01/31/19 13:39 Janes Bolaños M.D. Jan 31, 2019 15:38
--- NOTE | 2019-01-31 15:47 | Consultation ---
History of Present Illness General Date patient seen: Jan 31, 2019 Time patient seen: 13:00 Reason for Hospitalization: Abdominal Pain Present Illness HPI This is a 68-year-old female presented to [facility] ED for increased epigastric abdominal pain which began after eating a hamburger last night. Pain has been constant since then. Patient had prior history of gallstones. She reports having some subjective fever. She had no vomiting or diarrhea. She denies prior abdominal surgeries. patient was found to have leukocytosis, and normal LFT , afebrile, and hemodynamically stable , US of the gallbladder showed Cholelithiasis and gallbladder sludge with Positive sonographic Abdalla's sign raises concern for acute cholecystitis so she was started on zosyn empirically and an infectious disease consult was requested for antibiotics treatment and further care . Allergies: Coded Allergies: No Known Allergies (Unverified , 01/30/19) Medication History Scheduled Acetaminophen (Tylenol), 500 MG PO EVERY 6 HOURS, (Reported) Aspirin (Aspirin), 81 MG PO DAILY, (Reported) Atorvastatin (Lipitor), 40 MG ORAL DAILY, (Reported) Metformin Hcl* (Metformin Hcl*), Unknown Dose ORAL TWICE A DAY, (Reported) Patient History Limited by: language barrier History Provided By: Patient, Medical Record Healthcare decision maker Resuscitation status Full Code Advanced Directive on File Review of Systems Review of Symptoms General ROS: no weight loss or fever Psychological ROS: no depression or mood changes, no memory loss Ophthalmic ROS: no visual changes or eye irritation ENT ROS: no nasal congestion, hearing loss, dizziness Allergy and Immunology ROS: no allergic symptoms or urticaria Hematological and Lymphatic ROS: no swollen glands, unusual bleeding or bruising Endocrine ROS: no polyuria, polydipsia, weight changes, temperature intolerance Respiratory ROS: no cough, shortness of breath, or wheezing Cardiovascular ROS: no chest pain or dyspnea on exertion Gastrointestinal ROS: denies abdominal pain, bright red blood in stool. Musculoskeletal ROS: no myalgias or arthralgias Neurological ROS: no TIA or stroke symptoms Dermatological ROS: no new or changing skin lesions, rashes or pruritis Physical Exam Physical Exam General appearance: alert, cooperative, no distress, appears stated age Head: Normocephalic, without obvious abnormality, atraumatic Eyes: conjunctivae/corneas clear. PERRL, EOM's intact. Fundi benign Throat: Lips, mucosa, and tongue normal. Teeth and gums normal Neck: supple, symmetrical, trachea midline, no adenopathy, thyroid: not enlarged, symmetric, no tenderness/mass/nodules, no carotid bruit and no JVD Lungs: clear to auscultation bilaterally Heart: regular rate and rhythm, S1, S2 normal, no murmur, click, rub or gallop Abdomen: soft, tender in the epigastric area . Bowel sounds normal. No masses, no organomegaly Extremities: extremities normal, atraumatic, no cyanosis or edema Pulses: 2+ and symmetric Skin: Skin color, texture, turgor normal. No rashes or lesions Neurologic: Grossly normal Last 24 Hour Vital Signs Date Time Temp Pulse Resp B/P (MAP) Pulse Ox O2 Delivery O2 Flow Rate FiO2 01/31/19 12:00 98.4 56 18 99/44 (62) 98 01/31/19 09:00 Room Air 01/31/19 08:00 99.0 76 17 117/66 (83) 94 01/31/19 04:00 99.3 67 16 114/61 (78) 32 01/31/19 00:25 99.8 75 17 114/51 (72) 93 01/30/19 22:00 98.7 76 16 132/65 100 Room Air 01/30/19 21:51 Room Air 01/30/19 21:50 99.3 76 16 142/46 (78) 93 01/30/19 21:50 98.7 87 16 132/65 100 Room Air 01/30/19 18:13 83 16 Room Air 01/30/19 18:13 99.1 83 16 128/53 99 Room Air 01/30/19 18:03 99.1 78 16 142/69 (93) 95 Room Air Intake and Output 01/30/19 01/31/19 19:00 07:00 Intake Total 400 ml Balance 400 ml Intake IV Total 400 ml # Voids 1 1 Laboratory Tests Test 01/30/19 18:45 01/31/19 05:10 White Blood Count 11.3 K/UL (4.8-10.8) H 10.5 K/UL (4.8-10.8) Red Blood Count 4.12 M/UL (4.20-5.40) L 3.83 M/UL (4.20-5.40) L Hemoglobin 12.5 G/DL (12.0-16.0) 11.6 G/DL (12.0-16.0) L Hematocrit 35.2 % (37.0-47.0) L 34.1 % (37.0-47.0) L Mean Corpuscular Volume 86 FL (80-99) 89 FL (80-99) Mean Corpuscular Hemoglobin 30.3 PG (27.0-31.0) 30.2 PG (27.0-31.0) Mean Corpuscular Hemoglobin Concent 35.4 G/DL (32.0-36.0) 33.9 G/DL (32.0-36.0) Red Cell Distribution Width 11.9 % (11.6-14.8) 12.1 % (11.6-14.8) Platelet Count 149 K/UL (150-450) L 139 K/UL (150-450) L Mean Platelet Volume 7.7 FL (6.5-10.1) 9.1 FL (6.5-10.1) Neutrophils (%) (Auto) 81.3 % (45.0-75.0) H 78.7 % (45.0-75.0) H Lymphocytes (%) (Auto) 11.7 % (20.0-45.0) L 13.9 % (20.0-45.0) L Monocytes (%) (Auto) 6.4 % (1.0-10.0) 6.5 % (1.0-10.0) Eosinophils (%) (Auto) 0.2 % (0.0-3.0) 0.5 % (0.0-3.0) Basophils (%) (Auto) 0.4 % (0.0-2.0) 0.4 % (0.0-2.0) Urine Color Pale yellow Urine Appearance Clear Urine pH 6.5 (4.5-8.0) Urine Specific [place] 1.010 (1.005-1.035) Urine Protein Negative (NEGATIVE) Urine Glucose (UA) Negative (NEGATIVE) Urine Ketones Negative (NEGATIVE) Urine Blood 2+ (NEGATIVE) H Urine Nitrite Negative (NEGATIVE) Urine Bilirubin Negative (NEGATIVE) Urine Urobilinogen Normal MG/DL (0.0-1.0) Urine Leukocyte Esterase 1+ (NEGATIVE) H Urine RBC 2-4 /HPF (0 - 2) H Urine WBC 0-2 /HPF (0 - 2) Urine Squamous Epithelial Cells Few /LPF (NONE/OCC) Urine Bacteria Few /HPF (NONE) Sodium Level 142 MMOL/L (136-145) 140 MMOL/L (136-145) Potassium Level 3.1 MMOL/L (3.5-5.1) L 3.9 MMOL/L (3.5-5.1) Chloride Level 105 MMOL/L (98-107) 107 MMOL/L (98-107) Carbon Dioxide Level 29 MMOL/L (21-32) 27 MMOL/L (21-32) Anion Gap 8 mmol/L (5-15) 6 mmol/L (5-15) Blood Urea Nitrogen 6 mg/dL (7-18) L 7 mg/dL (7-18) Creatinine 0.9 MG/DL (0.55-1.30) 0.7 MG/DL (0.55-1.30) Estimat Glomerular Filtration Rate > 60 mL/min (>60) > 60 mL/min (>60) Glucose Level 137 MG/DL (74-106) H 134 MG/DL (74-106) H Calcium Level 8.8 MG/DL (8.5-10.1) 8.2 MG/DL (8.5-10.1) L Total Bilirubin 0.5 MG/DL (0.2-1.0) 0.5 MG/DL (0.2-1.0) Aspartate Amino Transf (AST/SGOT) 18 U/L (15-37) 18 U/L (15-37) Alanine Aminotransferase (ALT/SGPT) 21 U/L (12-78) 26 U/L (12-78) Alkaline Phosphatase 116 U/L (46-116) 110 U/L (46-116) Troponin I 0.000 ng/mL (0.000-0.056) Total Protein 7.0 G/DL (6.4-8.2) 6.3 G/DL (6.4-8.2) L Albumin 3.1 G/DL (3.4-5.0) L 2.7 G/DL (3.4-5.0) L Globulin 3.9 g/dL 3.6 g/dL Albumin/Globulin Ratio 0.8 (1.0-2.7) L 0.8 (1.0-2.7) L Lipase 36 U/L (73-393) L 30 U/L (73-393) L Hemoglobin A1c 7.3 % (4.3-6.0) H Triglycerides Level 70 MG/DL (30-150) Cholesterol Level 121 MG/DL (< 200) LDL Cholesterol 76 mg/dL (<100) HDL Cholesterol 29 MG/DL (40-60) L Cholesterol/HDL Ratio 4.2 (3.3-4.4) Amylase Level 16 U/L (25-115) L Thyroid Stimulating Hormone (TSH) 0.827 uiU/mL (0.358-3.740) Height (Feet): 4 Height (Inches): 11.00 Weight (Pounds): 110 Medications Current Medications Medications (Trade) Dose Ordered Sig/J Luis Route PRN Reason Start Time Stop Time Status Last Admin Dose Admin Dextrose (Dextrose 50%) 25 ml Q30M PRN IV Hypoglycemia 01/30/19 23:15 03/01/19 23:14 Dextrose/Sodium Chloride 1,000 ml @ 100 mls/hr Q10H IV 01/30/19 23:15 03/01/19 23:14 01/30/19 23:35 Enoxaparin Sodium (Lovenox) 40 mg DAILY SUBQ 01/31/19 09:00 03/02/19 08:59 01/31/19 08:32 Insulin Aspart (NovoLOG) AC+HS SUBQ 01/31/19 06:30 03/02/19 06:29 01/31/19 12:32 Morphine Sulfate (Morphine Sulfate) 2 mg Q4H PRN IVP For Pain (4-10) 01/30/19 23:15 02/06/19 23:14 Ondansetron HCl (Zofran) 4 mg Q6H PRN IVP Nausea & Vomiting 01/30/19 23:15 03/01/19 23:14 Pantoprazole (Protonix) 40 mg DAILY@0630 IVP 01/31/19 06:30 03/02/19 06:29 01/31/19 05:46 Piperacillin Sod/ Tazobactam Sod 3.375 gm/Sodium Chloride 110 ml @ 27.5 mls/hr EVERY 8 HOURS IVPB 01/31/19 06:00 02/05/19 05:59 01/31/19 13:39 Assessment/Plan Problem List: (1) Choledocholithiasis Assessment & Plan: with no gallbladder wall thickening or edema or fluids around it, doubt cholecystitis , await MRCP , may need HIDA scan to confirm , continue zosyn empirically for now surgery is following ICD Codes: K80.50 - Calculus of bile duct without cholangitis or cholecystitis without obstruction SNOMED: 408815152 (2) Abdominal pain Assessment & Plan: due to the above with possible passing stone, continue pain management as primary ICD Codes: R10.9 - Unspecified abdominal pain SNOMED: 63812006 Qualifiers: Qualified Codes: R10.13 - Epigastric pain Status: stable [facility] Hospital declaration INPATIENT level of care is warranted for this patient because patient is a 89 year old with who presents with suspicion of . I have a high level of concern because . Patient is at high risk for . Plan of care/treatment include . Patient care is expected to be greater than 2 midnights. OBSERVATION level of care is warranted for this patient. Patient is a 89 year old with who presents with . Patient will be admitted for 1 midnight, but if additional night(s) is/are necessary, patient will be converted to inpatient status for the entire hospitalization Disposition: Once the patient is stable to leave the hospital, I anticipate the patient will likely be discharged to the following environment: Estimated discharge date: I spent 70 minutes on this patient's case, and minutes was dedicated to counseling and/or care coordination. MIPS (Merit-based Incentive Payment System) Applicable CPT: 81516, 34271 CHECK ALL THAT ARE MET: Measure #5 (CHF): All ages. Prescribe GRACE/ARB upon discharge for patients with left ventricular systolic dysfunction. If not, the reason is clearly documented in the medical chart. Measure #8 (CHF): All ages. Prescribe a beta ade upon discharge for patients with left ventricular systolic dysfunction. If not, the reason is clearly documented in the medical chart. Measure #47 Advance care plan or surrogate decision maker documented in the medical record. Measure #130 The provider has documented, updated, or reviewed the patients current medication list and has documented it in the patients note. Measure #374 (All): Send report to referring provider. Measure #407(Sepsis due to MSSA bacteremia): Age 18+ Patient treated with a beta-lactam antibiotic (Nafcillin, Oxacillin or Cefazolin) as definitive therapy. MEDICAL COMPLEXITY High complexity medical decision making (need 2/3 categories) Problem - need 4 points Acute/new problem with new plan for workup (4 points, 1 max) Acute/new problem without additional workup (3 points, 1 max) Unstable chronic problem actively being managed (2 point each, 2 max) Stable chronic problem actively being managed (1 point each, 2 max) Self-limited/transient process (constipation, muscle ache, etc) (1 point each , 2 max) Data - need 4 points Reviewed labs/imaging studies (1 points, 2 max) Independent review of imaging (EKG, xrays, etc) (2 points, 2 max) Discussed case with consult/other MD/RN (2 points, 2 max) High Risk - qualify if have one of the following: Severe exacerbation of acute problem, acute mental status change, IV narcotics , monitoring drug levels (vancomycin, INR, tacrolimus etc) Janes Bolaños M.D. Jan 31, 2019 15:47
--- NOTE | 2019-01-31 17:00 | History and Physical Report ---
DATE OF ADMISSION: 01/30/2019 SOURCE OF INFORMATION: Patient and EMR. HISTORY OF PRESENT ILLNESS: The patient is a 68-year-old female with unremarkable past medical history, presented with pain in the upper abdomen. The patient reported the pain is for the last 3 days. Denies any bleeding or any diarrhea. Denies any fever or chills. The patient's family at the bedside. At the time of evaluation, the patient denies any severe abdominal pain. SOCIAL HISTORY: The patient lives with the family at home. Denies any history of smoking, illicit drug abuse, or alcohol abuse. ALLERGIES: NKDA. PAST MEDICAL HISTORY: Hyperlipidemia, diabetes. PAST SURGICAL HISTORY: Left foot surgery, otherwise unremarkable. PHYSICAL EXAMINATION: VITAL SIGNS: Blood pressure 140/80, temperature 98.2, pulse oximetry 98% on room air, respiratory rate 18, pulse ox 95% on room air. HEAD AND NECK: Atraumatic and normocephalic. ABDOMEN: Soft. No organomegaly. Normal bowel sounds. MUSCULOSKELETAL: No gross muscle deficit. LABORATORY DATA: Labs dated 01/30/2019 shows WBC 11.3, hemoglobin 12.5, platelets of 149. Potassium 3.1. AST, ALT normal. Amylase, lipase normal. ASSESSMENT AND PLAN: 1. Acute biliary colic. 2. Acute gastritis. 3. Diabetes type 2. 4. Hyperlipidemia. 5. Thrombocytopenia. 6. Hypokalemia. 7. GI and DVT prophylaxis. PLAN OF CARE: 1. I will stop the metformin. We will continue sliding scale insulin. 2. We will obtain the abdominal ultrasound. 3. We will consult the GI. Gilberto Holcomb M.D. DR: COLE JOB#: [id number] CC:
--- NOTE | 2019-01-31 19:15 | NUR ---
NURSE NOTES: Report taken from ALISE Simpson. Patient is awake and in bed, A&Ox4. Family at bedside. No signs of distress on room air. Patient has no complaints of pain. No skin issues. IV site c/d/i and patent, running D5NS at 100mls/hr. Able to ambulate with assist, spoke with patient about calling RN in for assistance for ambulation. Bed in lowest position, call light within reach.
--- NOTE | 2019-01-31 19:47 | NUR ---
HAND-OFF: Report given to Guillaume CARRERO, pt in stable condition with no signs of distress or other issues at this time. Family at bedside.
[2019-02-01 04:00] VITALS: BP 108/43
[2019-02-01] MEDS: D5NS 1,000 ML IV SCH ×2 (06:10→16:22)
[2019-02-01] MEDS: Piperacillin/Tazobactam 3.375 GM in NS 110 ML IVPB SCH ×3 (06:11→21:45)
[2019-02-01 06:14] LABS: BASOPHILS % (AUTO) 0.6 % (0.0-2.0); EOSINOPHILS % (AUTO) 2.6 % (0.0-3.0); HEMATOCRIT 31.7 % (37.0-47.0); HEMOGLOBIN 10.5 G/DL (12.0-16.0); LYMPHOCYTES % (AUTO) 20.8 % (20.0-45.0); MEAN CORPUSCULAR VOLUME 90 FL (80-99); MONOCYTES % (AUTO) 6.1 % (1.0-10.0); PLATELET COUNT 112 K/UL (150-450); RED BLOOD COUNT 3.52 M/UL (4.20-5.40); RED CELL DISTRIBUTION WIDTH 12.5 % (11.6-14.8); WHITE BLOOD COUNT 5.5 K/UL (4.8-10.8)
[2019-02-01] MEDS: NovoLOG Insulin Flexpen SUBQ SCH ×4 (06:15→21:01)
[2019-02-01] MEDS: Pantoprazole Inj IVP SCH (06:18)
[2019-02-01 07:17] LABS: ALANINE AMINOTRANSFERASE 24 U/L (12-78); ALBUMIN 2.6 G/DL (3.4-5.0); ALBUMIN/GLOBULIN RATIO 0.7 (1.0-2.7); ALKALINE PHOSPHATASE 109 U/L (46-116); ANION GAP 7 mmol/L (5-15); ASPARTATE AMINO TRANSFERASE 28 U/L (15-37); BILIRUBIN,TOTAL 0.4 MG/DL (0.2-1.0); BLOOD UREA NITROGEN 7 mg/dL (7-18); CALCIUM 8.2 MG/DL (8.5-10.1); CARBON DIOXIDE 26 MMOL/L (21-32); CHLORIDE 111 MMOL/L (98-107); CREATININE 0.8 MG/DL (0.55-1.30); POTASSIUM 3.7 MMOL/L (3.5-5.1); SODIUM 144 MMOL/L (136-145)
--- NOTE | 2019-02-01 07:25 | NUR ---
HAND-OFF: Report given to ALISE Myrick. patient awake and Vs stable.
--- NOTE | 2019-02-01 07:38 | NUR ---
NURSE NOTES: awake/alert. tajik speaking. no c/o pain. in no distress.
[2019-02-01 08:01] VITALS: BP 114/58
--- NOTE | 2019-02-01 08:50 | NUR ---
NURSE NOTES: DR COATES CALLED RE: PLATELET 112. PT ON LOVENOX . NEED PARAMETER IF OK TO GIVE MEDICINE. LEFT MESSAGE TO RETURN CALL.
--- NOTE | 2019-02-01 09:20 | General Progress Note ---
Assessment/Plan Status: stable Assessment/Plan: abd pain dilated CBD pancreatic duct stone dilated pancreatic duct chronic pancreatitis normal LFTS MRCP reviewed needs out patient referral to a tertiary center for pancreatic duct stone removal add creon fu labs fu surg consult dc planning per primary team Subjective ROS Limited/Unobtainable: Yes Allergies: Coded Allergies: No Known Allergies (Unverified , 01/30/19) Objective Last 24 Hour Vital Signs Date Time Temp Pulse Resp B/P (MAP) Pulse Ox O2 Delivery O2 Flow Rate FiO2 02/01/19 08:09 Room Air 02/01/19 08:01 99.4 52 18 114/58 (76) 96 02/01/19 04:00 98.3 52 18 108/43 (64) 94 01/31/19 23:57 98.5 64 18 94/49 (64) 94 01/31/19 21:00 Room Air 01/31/19 20:00 98.6 56 18 110/55 (73) 95 01/31/19 16:00 98.3 71 18 108/58 (75) 97 01/31/19 12:00 98.4 56 18 99/44 (62) 98 Intake and Output 01/31/19 02/01/19 19:00 07:00 Intake Total 600 ml 525 ml Balance 600 ml 525 ml Intake Oral 600 ml 425 ml IV Total 100 ml # Voids 2 2 Laboratory Tests 02/01/19 05:30: White Blood Count 5.5, Red Blood Count 3.52L, Hemoglobin 10.5L, Hematocrit 31.7L , Mean Corpuscular Volume 90, Mean Corpuscular Hemoglobin 29.8, Mean Corpuscular Hemoglobin Concent 33.1, Red Cell Distribution Width 12.5, Platelet Count 112L, Mean Platelet Volume 8.6, Neutrophils (%) (Auto) 70.0, Lymphocytes ( %) (Auto) 20.8, Monocytes (%) (Auto) 6.1, Eosinophils (%) (Auto) 2.6, Basophils (%) (Auto) 0.6, Sodium Level 144, Potassium Level 3.7, Chloride Level 111H, Carbon Dioxide Level 26, Anion Gap 7, Blood Urea Nitrogen 7, Creatinine 0.8, Estimat Glomerular Filtration Rate > 60, Glucose Level 163H, Calcium Level 8.2L , Total Bilirubin 0.4, Aspartate Amino Transf (AST/SGOT) 28, Alanine Aminotransferase (ALT/SGPT) 24, Alkaline Phosphatase 109, Total Protein 6.1L, Albumin 2.6L, Globulin 3.5, Albumin/Globulin Ratio 0.7L Height (Feet): 4 Height (Inches): 11.00 Weight (Pounds): 123 General Appearance: alert EENT: normal ENT inspection Neck: supple Cardiovascular: normal rate Respiratory/Chest: decreased breath sounds Abdomen: normal bowel sounds, non tender, soft Extremities: non-tender Anshul Chang MD Feb 01, 2019 09:20
--- NOTE | 2019-02-01 10:40 | Surgery Progress Note ---
Surgery Progress Note Subjective Additional Comments no acute events pain resolved no n/v/f/c mri noted gi input appreciated Objective Last 24 Hour Vital Signs Date Time Temp Pulse Resp B/P (MAP) Pulse Ox O2 Delivery O2 Flow Rate FiO2 02/01/19 08:09 Room Air 02/01/19 08:01 99.4 52 18 114/58 (76) 96 02/01/19 04:00 98.3 52 18 108/43 (64) 94 01/31/19 23:57 98.5 64 18 94/49 (64) 94 01/31/19 21:00 Room Air 01/31/19 20:00 98.6 56 18 110/55 (73) 95 01/31/19 16:00 98.3 71 18 108/58 (75) 97 01/31/19 12:00 98.4 56 18 99/44 (62) 98 I&O Intake and Output 01/31/19 02/01/19 19:00 07:00 Intake Total 600 ml 525 ml Balance 600 ml 525 ml Intake Oral 600 ml 425 ml IV Total 100 ml # Voids 2 2 Cardiovascular: RSR Respiratory: clear Abdomen: soft, flat, non-tender, present bowel sounds, non-distended Extremities: no tenderness, no cyanosis, other Laboratory Tests Test 02/01/19 05:30 White Blood Count 5.5 K/UL (4.8-10.8) Red Blood Count 3.52 M/UL (4.20-5.40) L Hemoglobin 10.5 G/DL (12.0-16.0) L Hematocrit 31.7 % (37.0-47.0) L Mean Corpuscular Volume 90 FL (80-99) Mean Corpuscular Hemoglobin 29.8 PG (27.0-31.0) Mean Corpuscular Hemoglobin Concent 33.1 G/DL (32.0-36.0) Red Cell Distribution Width 12.5 % (11.6-14.8) Platelet Count 112 K/UL (150-450) L Mean Platelet Volume 8.6 FL (6.5-10.1) Neutrophils (%) (Auto) 70.0 % (45.0-75.0) Lymphocytes (%) (Auto) 20.8 % (20.0-45.0) Monocytes (%) (Auto) 6.1 % (1.0-10.0) Eosinophils (%) (Auto) 2.6 % (0.0-3.0) Basophils (%) (Auto) 0.6 % (0.0-2.0) Sodium Level 144 MMOL/L (136-145) Potassium Level 3.7 MMOL/L (3.5-5.1) Chloride Level 111 MMOL/L (98-107) H Carbon Dioxide Level 26 MMOL/L (21-32) Anion Gap 7 mmol/L (5-15) Blood Urea Nitrogen 7 mg/dL (7-18) Creatinine 0.8 MG/DL (0.55-1.30) Estimat Glomerular Filtration Rate > 60 mL/min (>60) Glucose Level 163 MG/DL (74-106) H Calcium Level 8.2 MG/DL (8.5-10.1) L Total Bilirubin 0.4 MG/DL (0.2-1.0) Aspartate Amino Transf (AST/SGOT) 28 U/L (15-37) Alanine Aminotransferase (ALT/SGPT) 24 U/L (12-78) Alkaline Phosphatase 109 U/L (46-116) Total Protein 6.1 G/DL (6.4-8.2) L Albumin 2.6 G/DL (3.4-5.0) L Globulin 3.5 g/dL Albumin/Globulin Ratio 0.7 (1.0-2.7) L Plan Problems: (1) Choledocholithiasis Assessment & Plan: 68F with epi/ruq abd pain, hx of gallstones, leukocytosis, afebrile, nml lft's. US as below iv fluids iv abx MRCP noted okay for diet d/c planning as per GI with outpatient tertiary center f/u for stone removal will follow with recs thank you Impression: Markedly dilated pancreatic duct, with evidence of a 1 cm stone within the downstream pancreatic duct near the ampulla. Uncertain as to whether the ductal dilatation is due to obstruction by stone, versus related to chronic calcifying pancreatitis (pancreatic calcifications demonstrated on recent sonogram post ( versus occult pancreatic head mass. Consider further evaluation with endoscopic sonography. Dilated common bile duct, without a definite common duct stone. There may be prominence to the papilla, and ampullary tumor is therefore not excludable. Cholelithiasis Note phrygian cap anatomy to the gallbladder-normal anatomic variant Findings: Gallbladder demonstrates gallstones in the neck. No gallbladder wall thickening or pericholecystic fluid is also sludge in the gallbladder. Technologist reports that the sonographic Abdalla's sign is positive. Common bile duct measures 13 mm in diameter. There is mild central intrahepatic biliary ductal dilatation.. Liver demonstrates normal echogenicity, no focal abnormality. Portal vein and hepatic veins are patent. The pancreas demonstrates heterogeneous echogenicity and likely multiple calcifications. Spleen is unremarkable. Left kidney measures 9.7 cm in length. Right kidney measures 11.5 cm length. Both kidneys demonstrate normal echogenicity. There is no hydronephrosis. No focal abnormality . Abdominal aorta is partially obscured by bowel gas, visualized portions are non-aneurysmal . Impression: Cholelithiasis and gallbladder sludge. Positive sonographic Abdalla' s sign raises concern for acute cholecystitis. Consider hepatobiliary nuclear scanning if there is high clinical suspicion Dilated common bile duct and mild central intrahepatic biliary ductal dilatation. This is concerning for downstream obstruction. Heterogeneous pancreas with possible calcifications, could indicate chronic pancreatitis Note incomplete visualization of the distal abdominal aorta Rudy Guadarrama Feb 01, 2019 10:40
[2019-02-01 12:00] VITALS: BP 117/57
[2019-02-01] MEDS: Pancrelipase Dr Cap ORAL SCH ×2 (12:38→17:44)
--- NOTE | 2019-02-01 12:46 | NUR ---
SUBSURFACE [employer] SI: CHOLEDOCHOLITHIASIS, S/P MRCP T. 99.4 HR 52 RR 18 B/P 114/58 RA 98% IS: IVF D5NS @ 100ML/HR PROTONIX IV ZOSYN IV MED/SURG STATUS
--- NOTE | 2019-02-01 15:29 | Hematology/Onc Progress Note ---
Assessment/Plan Assessment/Plan # Thrombocytopenia - potential causes multifactorial, evaluate liver and viral etiologies to begin, also could be due to inflamm process from stone --> Hep panel and HIV ordered --> US abd and mri doesn't show cirrhosis/or large spleen --> Peripheral smear ordered to evaluate for blasts /schistocytes --> abx and other meds have been reviewed --> ok for ppx if plt >50k w/ either heparin or lovenox --> Transfuse if Plt < 20k and fever, or if Plt < 10k without fever # Anemia of chronic disease (or of iron deficiency) due to underlying chronic medical issues, multifactorial --> Anemia workup with ferritin and iron panel --> No evidence of hemolysis is noted, peripheral smear has been reviewed. --> Hgb goal >7. Transfuse prn. --> Epogen or iron at this time is not particularly indicated --> Medications have been reviewed --> low threshold for gi evaluation in case has occult + --> bone marrow biopsy is not indicated given the other more likely causes # Abd pain may be due to dilated CBD --> pancreatic duct stone with dilated pancreatic duct --> gi /surg care --> pending potential transf # Dvt ppx scds The timing of this note does not necessarily reflect the time of the patient was seen. Greatly appreciate consultation. Subjective Constitutional: Denies: no symptoms, chills, fever, malaise, weakness, other HEENT: Denies: no symptoms, eye pain, blurred vision, tearing, double vision, ear pain, ear discharge, nose pain, nose congestion, throat pain, throat swelling, mouth pain, mouth swelling, other Cardiovascular: Denies: no symptoms, chest pain, edema, irregular heart rate, lightheadedness, palpitations, syncope, other Respiratory: Denies: no symptoms, cough, shortness of breath, SOB with excertion, SOB at rest, sputum, wheezing, other Gastrointestinal/Abdominal: Denies: no symptoms, abdomen distended, abdominal pain, black stools, tarry stools, blood in stool, constipated, diarrhea, difficulty swallowing, nausea, poor appetite, poor fluid intake, rectal bleeding , vomiting, other Genitourinary: Denies: no symptoms, burning, discharge, frequency, flank pain, hematuria, incontinence, pain, urgency, other Neurologic/Psychiatric: Denies: no symptoms, anxiety, depressed, emotional problems, headache, numbness, paresthesia, pre-existing deficit, seizure, tingling, tremors, weakness, other Allergies: Coded Allergies: No Known Allergies (Unverified , 01/30/19) Subjective 02/01: no events, plt is somewhat lower, get hep and hiv panels Objective Objective Current Medications Medications (Trade) Dose Ordered Sig/J Luis Route PRN Reason Start Time Stop Time Status Last Admin Dose Admin Amylase/Lipase/ Protease (Zenpep) 4 ea THREE TIMES A DAY ORAL 02/01/19 13:00 03/03/19 12:59 02/01/19 12:38 Dextrose (Dextrose 50%) 25 ml Q30M PRN IV Hypoglycemia 01/30/19 23:15 03/01/19 23:14 Dextrose/Sodium Chloride 1,000 ml @ 100 mls/hr Q10H IV 01/30/19 23:15 03/01/19 23:14 02/01/19 06:10 Insulin Aspart (NovoLOG) AC+HS SUBQ 01/31/19 06:30 03/02/19 06:29 02/01/19 11:31 Morphine Sulfate (Morphine Sulfate) 2 mg Q4H PRN IVP For Pain (4-10) 01/30/19 23:15 02/06/19 23:14 Ondansetron HCl (Zofran) 4 mg Q6H PRN IVP Nausea & Vomiting 01/30/19 23:15 03/01/19 23:14 Pantoprazole (Protonix) 40 mg DAILY@0630 IVP 01/31/19 06:30 03/02/19 06:29 02/01/19 06:18 Piperacillin Sod/ Tazobactam Sod 3.375 gm/Sodium Chloride 110 ml @ 27.5 mls/hr EVERY 8 HOURS IVPB 01/31/19 06:00 02/05/19 05:59 02/01/19 13:34 Last 24 Hour Vital Signs Date Time Temp Pulse Resp B/P (MAP) Pulse Ox O2 Delivery O2 Flow Rate FiO2 02/01/19 12:00 98.6 50 18 117/57 (77) 96 02/01/19 08:09 Room Air 02/01/19 08:01 99.4 52 18 114/58 (76) 96 02/01/19 04:00 98.3 52 18 108/43 (64) 94 01/31/19 23:57 98.5 64 18 94/49 (64) 94 01/31/19 21:00 Room Air 01/31/19 20:00 98.6 56 18 110/55 (73) 95 01/31/19 16:00 98.3 71 18 108/58 (75) 97 01/31/19 12:00 98.4 56 18 99/44 (62) 98 01/31/19 09:00 Room Air 01/31/19 08:00 99.0 76 17 117/66 (83) 94 01/31/19 04:00 99.3 67 16 114/61 (78) 32 01/31/19 00:25 99.8 75 17 114/51 (72) 93 01/30/19 22:00 98.7 76 16 132/65 100 Room Air 01/30/19 21:51 Room Air 01/30/19 21:50 99.3 76 16 142/46 (78) 93 01/30/19 21:50 98.7 87 16 132/65 100 Room Air 01/30/19 18:13 83 16 Room Air 01/30/19 18:13 99.1 83 16 128/53 99 Room Air 01/30/19 18:03 99.1 78 16 142/69 (93) 95 Room Air Intake and Output 01/31/19 02/01/19 19:00 07:00 Intake Total 600 ml 525 ml Balance 600 ml 525 ml Intake Oral 600 ml 425 ml IV Total 100 ml # Voids 2 2 Labs Test 01/30/19 18:45 01/31/19 05:10 02/01/19 05:30 White Blood Count 11.3 K/UL (4.8-10.8) 10.5 K/UL (4.8-10.8) 5.5 K/UL (4.8-10.8) Red Blood Count 4.12 M/UL (4.20-5.40) 3.83 M/UL (4.20-5.40) 3.52 M/UL (4.20-5.40) Hemoglobin 12.5 G/DL (12.0-16.0) 11.6 G/DL (12.0-16.0) 10.5 G/DL (12.0-16.0) Hematocrit 35.2 % (37.0-47.0) 34.1 % (37.0-47.0) 31.7 % (37.0-47.0) Mean Corpuscular Volume 86 FL (80-99) 89 FL (80-99) 90 FL (80-99) Mean Corpuscular Hemoglobin 30.3 PG (27.0-31.0) 30.2 PG (27.0-31.0) 29.8 PG (27.0-31.0) Mean Corpuscular Hemoglobin Concent 35.4 G/DL (32.0-36.0) 33.9 G/DL (32.0-36.0) 33.1 G/DL (32.0-36.0) Red Cell Distribution Width 11.9 % (11.6-14.8) 12.1 % (11.6-14.8) 12.5 % (11.6-14.8) Platelet Count 149 K/UL (150-450) 139 K/UL (150-450) 112 K/UL (150-450) Mean Platelet Volume 7.7 FL (6.5-10.1) 9.1 FL (6.5-10.1) 8.6 FL (6.5-10.1) Neutrophils (%) (Auto) 81.3 % (45.0-75.0) 78.7 % (45.0-75.0) 70.0 % (45.0-75.0) Lymphocytes (%) (Auto) 11.7 % (20.0-45.0) 13.9 % (20.0-45.0) 20.8 % (20.0-45.0) Monocytes (%) (Auto) 6.4 % (1.0-10.0) 6.5 % (1.0-10.0) 6.1 % (1.0-10.0) Eosinophils (%) (Auto) 0.2 % (0.0-3.0) 0.5 % (0.0-3.0) 2.6 % (0.0-3.0) Basophils (%) (Auto) 0.4 % (0.0-2.0) 0.4 % (0.0-2.0) 0.6 % (0.0-2.0) Urine Color Pale yellow Urine Appearance Clear Urine pH 6.5 (4.5-8.0) Urine Specific [place] 1.010 (1.005-1.035) Urine Protein Negative (NEGATIVE) Urine Glucose (UA) Negative (NEGATIVE) Urine Ketones Negative (NEGATIVE) Urine Blood 2+ (NEGATIVE) Urine Nitrite Negative (NEGATIVE) Urine Bilirubin Negative (NEGATIVE) Urine Urobilinogen Normal MG/DL (0.0-1.0) Urine Leukocyte Esterase 1+ (NEGATIVE) Urine RBC 2-4 /HPF (0 - 2) Urine WBC 0-2 /HPF (0 - 2) Urine Squamous Epithelial Cells Few /LPF (NONE/OCC) Urine Bacteria Few /HPF (NONE) Sodium Level 142 MMOL/L (136-145) 140 MMOL/L (136-145) 144 MMOL/L (136-145) Potassium Level 3.1 MMOL/L (3.5-5.1) 3.9 MMOL/L (3.5-5.1) 3.7 MMOL/L (3.5-5.1) Chloride Level 105 MMOL/L (98-107) 107 MMOL/L (98-107) 111 MMOL/L (98-107) Carbon Dioxide Level 29 MMOL/L (21-32) 27 MMOL/L (21-32) 26 MMOL/L (21-32) Anion Gap 8 mmol/L (5-15) 6 mmol/L (5-15) 7 mmol/L (5-15) Blood Urea Nitrogen 6 mg/dL (7-18) 7 mg/dL (7-18) 7 mg/dL (7-18) Creatinine 0.9 MG/DL (0.55-1.30) 0.7 MG/DL (0.55-1.30) 0.8 MG/DL (0.55-1.30) Estimat Glomerular Filtration Rate > 60 mL/min (>60) > 60 mL/min (>60) > 60 mL/min (>60) Glucose Level 137 MG/DL (74-106) 134 MG/DL (74-106) 163 MG/DL (74-106) Calcium Level 8.8 MG/DL (8.5-10.1) 8.2 MG/DL (8.5-10.1) 8.2 MG/DL (8.5-10.1) Total Bilirubin 0.5 MG/DL (0.2-1.0) 0.5 MG/DL (0.2-1.0) 0.4 MG/DL (0.2-1.0) Aspartate Amino Transf (AST/SGOT) 18 U/L (15-37) 18 U/L (15-37) 28 U/L (15-37) Alanine Aminotransferase (ALT/SGPT) 21 U/L (12-78) 26 U/L (12-78) 24 U/L (12-78) Alkaline Phosphatase 116 U/L (46-116) 110 U/L (46-116) 109 U/L (46-116) Troponin I 0.000 ng/mL (0.000-0.056) Total Protein 7.0 G/DL (6.4-8.2) 6.3 G/DL (6.4-8.2) 6.1 G/DL (6.4-8.2) Albumin 3.1 G/DL (3.4-5.0) 2.7 G/DL (3.4-5.0) 2.6 G/DL (3.4-5.0) Globulin 3.9 g/dL 3.6 g/dL 3.5 g/dL Albumin/Globulin Ratio 0.8 (1.0-2.7) 0.8 (1.0-2.7) 0.7 (1.0-2.7) Lipase 36 U/L (73-393) 30 U/L (73-393) Hemoglobin A1c 7.3 % (4.3-6.0) Triglycerides Level 70 MG/DL (30-150) Cholesterol Level 121 MG/DL (< 200) LDL Cholesterol 76 mg/dL (<100) HDL Cholesterol 29 MG/DL (40-60) Cholesterol/HDL Ratio 4.2 (3.3-4.4) Amylase Level 16 U/L (25-115) Thyroid Stimulating Hormone (TSH) 0.827 uiU/mL (0.358-3.740) Height (Feet): 4 Height (Inches): 11.00 Weight (Pounds): 123 Objective Physical Exam: Vitals: reviewed General Appearance: NAD HEENT: normocephalic, atraumatic Neck: non-tender, normal alignment Respiratory/Chest: normal breath sounds bilaterally Cardiovascular/Chest: normal peripheral pulses, normal rate Abdomen: normal bowel sounds, soft, nontender Extremities: normal range of motion Cuco Erwin MD Feb 01, 2019 15:29
[2019-02-01 16:00] VITALS: BP 105/58
--- NOTE | 2019-02-01 16:31 | Infectious Diseases Prog Note ---
Assessment/Plan Problems: (1) Choledocholithiasis Assessment & Plan: with no gallbladder wall thickening or edema or fluids around it, doubt cholecystitis , await MRCP , may need HIDA scan to confirm , continue zosyn empirically for now surgery is following (2) Abdominal pain Assessment & Plan: due to the above with possible passing stone, continue pain management as primary Subjective Constitutional: Reports: no symptoms HEENT: Reports: no symptoms Respiratory: Reports: no symptoms Breasts: Reports: no symptoms Cardiovascular: Reports: no symptoms Gastrointestinal/Abdominal: Reports: no symptoms Genitourinary: Reports: no symptoms Neurologic: Reports: no symptoms Psychiatric: Reports: no symptoms Skin: Reports: no symptoms Endocrine: Reports: no symptoms Hematologic: Reports: no symptoms Musculoskeletal: Reports: no symptoms Allergies: Coded Allergies: No Known Allergies (Unverified , 01/30/19) Objective Vital Signs Last 24 Hour Vital Signs Date Time Temp Pulse Resp B/P (MAP) Pulse Ox O2 Delivery O2 Flow Rate FiO2 02/01/19 16:00 98.5 58 18 105/58 (74) 96 02/01/19 12:00 98.6 50 18 117/57 (77) 96 02/01/19 08:09 Room Air 02/01/19 08:01 99.4 52 18 114/58 (76) 96 02/01/19 04:00 98.3 52 18 108/43 (64) 94 01/31/19 23:57 98.5 64 18 94/49 (64) 94 01/31/19 21:00 Room Air 01/31/19 20:00 98.6 56 18 110/55 (73) 95 Height (Feet): 4 Height (Inches): 11.00 Weight (Pounds): 123 General Appearance: WD/WN, no acute distress HEENT: normocephalic, atraumatic, anicteric, mucous membranes moist Respiratory/Chest: chest wall non-tender, lungs clear, normal breath sounds, no respiratory distress, no accessory muscle use Cardiovascular: normal peripheral pulses, normal rate, regular rhythm, no gallop/murmur, no JVD Abdomen: normal bowel sounds, soft, non tender, no organomegaly, non distended , no mass, no scars Extremities: no cyanosis, no clubbing Skin: no rash, no lesions, no ulcers Neurologic/Psychiatric: alert, responsive Lymphatic: no neck adenopathy, no groin adenopathy Musculoskeletal: normal muscle bulk, no effusion Laboratory Tests Test 02/01/19 05:30 White Blood Count 5.5 K/UL (4.8-10.8) Red Blood Count 3.52 M/UL (4.20-5.40) L Hemoglobin 10.5 G/DL (12.0-16.0) L Hematocrit 31.7 % (37.0-47.0) L Mean Corpuscular Volume 90 FL (80-99) Mean Corpuscular Hemoglobin 29.8 PG (27.0-31.0) Mean Corpuscular Hemoglobin Concent 33.1 G/DL (32.0-36.0) Red Cell Distribution Width 12.5 % (11.6-14.8) Platelet Count 112 K/UL (150-450) L Mean Platelet Volume 8.6 FL (6.5-10.1) Neutrophils (%) (Auto) 70.0 % (45.0-75.0) Lymphocytes (%) (Auto) 20.8 % (20.0-45.0) Monocytes (%) (Auto) 6.1 % (1.0-10.0) Eosinophils (%) (Auto) 2.6 % (0.0-3.0) Basophils (%) (Auto) 0.6 % (0.0-2.0) Sodium Level 144 MMOL/L (136-145) Potassium Level 3.7 MMOL/L (3.5-5.1) Chloride Level 111 MMOL/L (98-107) H Carbon Dioxide Level 26 MMOL/L (21-32) Anion Gap 7 mmol/L (5-15) Blood Urea Nitrogen 7 mg/dL (7-18) Creatinine 0.8 MG/DL (0.55-1.30) Estimat Glomerular Filtration Rate > 60 mL/min (>60) Glucose Level 163 MG/DL (74-106) H Calcium Level 8.2 MG/DL (8.5-10.1) L Total Bilirubin 0.4 MG/DL (0.2-1.0) Aspartate Amino Transf (AST/SGOT) 28 U/L (15-37) Alanine Aminotransferase (ALT/SGPT) 24 U/L (12-78) Alkaline Phosphatase 109 U/L (46-116) Total Protein 6.1 G/DL (6.4-8.2) L Albumin 2.6 G/DL (3.4-5.0) L Globulin 3.5 g/dL Albumin/Globulin Ratio 0.7 (1.0-2.7) L Vitamin B12 Level Pending Hepatitis A IgM Antibody Pending Hepatitis B Surface Antigen Pending Hepatitis B Core IgM Antibody Pending Hepatitis C Antibody Pending HIV (1&2) Antibody Rapid Negative (NEGATIVE) Current Medications Medications (Trade) Dose Ordered Sig/J Luis Route PRN Reason Start Time Stop Time Status Last Admin Dose Admin Amylase/Lipase/ Protease (Zenpep) 4 ea THREE TIMES A DAY ORAL 02/01/19 13:00 03/03/19 12:59 02/01/19 12:38 Dextrose (Dextrose 50%) 25 ml Q30M PRN IV Hypoglycemia 01/30/19 23:15 03/01/19 23:14 Dextrose/Sodium Chloride 1,000 ml @ 100 mls/hr Q10H IV 01/30/19 23:15 03/01/19 23:14 02/01/19 16:22 Insulin Aspart (NovoLOG) AC+HS SUBQ 01/31/19 06:30 03/02/19 06:29 02/01/19 11:31 Morphine Sulfate (Morphine Sulfate) 2 mg Q4H PRN IVP For Pain (4-10) 01/30/19 23:15 02/06/19 23:14 Ondansetron HCl (Zofran) 4 mg Q6H PRN IVP Nausea & Vomiting 01/30/19 23:15 03/01/19 23:14 Pantoprazole (Protonix) 40 mg DAILY@0630 IVP 01/31/19 06:30 03/02/19 06:29 02/01/19 06:18 Piperacillin Sod/ Tazobactam Sod 3.375 gm/Sodium Chloride 110 ml @ 27.5 mls/hr EVERY 8 HOURS IVPB 01/31/19 06:00 02/05/19 05:59 02/01/19 13:34 Janes Bolaños M.D. Feb 01, 2019 16:31
--- NOTE | 2019-02-01 19:00 | NUR ---
NURSE NOTES: RESTING. IN NO APPARENT DISTRES. STABLE.
--- NOTE | 2019-02-01 19:13 | General Progress Note ---
Assessment/Plan Status: stable Assessment/Plan: S: I am ok O: Seems comfortable, denies abd pain PHYSICAL EXAMINATION: HEAD AND NECK: Atraumatic and normocephalic. ABDOMEN: Soft. No organomegaly. Normal bowel sounds. MUSCULOSKELETAL: No gross muscle deficit. LABORATORY DATA: Labs dated 01/22/2019 reviwed Imaging : MRCP report reviwed ASSESSMENT AND PLAN: 1. Acute biliary colic. 2. Acute gastritis. 3. Diabetes type 2. 4. Hyperlipidemia. 5. Thrombocytopenia. 6. Hypokalemia. 7. GI and DVT prophylaxis. PLAN OF CARE: Plan: MRCP notres from GI and Surgeon are reviewed Subjective Allergies: Coded Allergies: No Known Allergies (Unverified , 01/30/19) Objective Last 24 Hour Vital Signs Date Time Temp Pulse Resp B/P (MAP) Pulse Ox O2 Delivery O2 Flow Rate FiO2 02/01/19 16:00 98.5 58 18 105/58 (74) 96 02/01/19 12:00 98.6 50 18 117/57 (77) 96 02/01/19 08:09 Room Air 02/01/19 08:01 99.4 52 18 114/58 (76) 96 02/01/19 04:00 98.3 52 18 108/43 (64) 94 01/31/19 23:57 98.5 64 18 94/49 (64) 94 01/31/19 21:00 Room Air 01/31/19 20:00 98.6 56 18 110/55 (73) 95 Intake and Output 01/31/19 02/01/19 19:00 07:00 Intake Total 600 ml 525 ml Balance 600 ml 525 ml Intake Oral 600 ml 425 ml IV Total 100 ml # Voids 2 2 Laboratory Tests 02/01/19 05:30: White Blood Count 5.5, Red Blood Count 3.52L, Hemoglobin 10.5L, Hematocrit 31.7L , Mean Corpuscular Volume 90, Mean Corpuscular Hemoglobin 29.8, Mean Corpuscular Hemoglobin Concent 33.1, Red Cell Distribution Width 12.5, Platelet Count 112L, Mean Platelet Volume 8.6, Neutrophils (%) (Auto) 70.0, Lymphocytes ( %) (Auto) 20.8, Monocytes (%) (Auto) 6.1, Eosinophils (%) (Auto) 2.6, Basophils (%) (Auto) 0.6, Sodium Level 144, Potassium Level 3.7, Chloride Level 111H, Carbon Dioxide Level 26, Anion Gap 7, Blood Urea Nitrogen 7, Creatinine 0.8, Estimat Glomerular Filtration Rate > 60, Glucose Level 163H, Calcium Level 8.2L , Total Bilirubin 0.4, Aspartate Amino Transf (AST/SGOT) 28, Alanine Aminotransferase (ALT/SGPT) 24, Alkaline Phosphatase 109, Total Protein 6.1L, Albumin 2.6L, Globulin 3.5, Albumin/Globulin Ratio 0.7L, Vitamin B12 Level 362, Hepatitis A IgM Antibody [Pending], Hepatitis B Surface Antigen [Pending], Hepatitis B Core IgM Antibody [Pending], Hepatitis C Antibody [Pending], HIV (1& 2) Antibody Rapid Negative Height (Feet): 4 Height (Inches): 11.00 Weight (Pounds): 123 Gilberto Holcomb MD Feb 01, 2019 19:13
--- NOTE | 2019-02-01 19:25 | NUR ---
NURSE NOTES: Report taken from ALISE Myrick. Patient is asleep, responds to name, A&Ox4. No signs of distress on room air. No complaints of pain or discomfort. RN endorsed to nurse to D/C lovenox and apply SCDs to patient. IV site c/d/i and patent, running D5NS @ 100mls/hr. No skin issues present. Bed in lowest position, call light within reach.
--- NOTE | 2019-02-01 19:39 | NUR ---
HAND-OFF: Report given to Luciano HERNANDEZ RN.
[2019-02-01 20:00] VITALS: BP 124/57
[2019-02-02] VITALS: BP 115/61
[2019-02-02] MEDS: D5NS 1,000 ML IV SCH ×3 (01:39→21:15)
[2019-02-02 03:55] VITALS: BP 122/57
[2019-02-02] MEDS: Piperacillin/Tazobactam 3.375 GM in NS 110 ML IVPB SCH ×3 (05:56→21:20)
[2019-02-02] MEDS: NovoLOG Insulin Flexpen SUBQ SCH ×4 (06:00→21:20)
[2019-02-02] MEDS: Pantoprazole Inj IVP SCH (06:05)
[2019-02-02 06:41] LABS: BASOPHILS % (AUTO) 0.7 % (0.0-2.0); HEMATOCRIT 32.6 % (37.0-47.0); HEMOGLOBIN 10.8 G/DL (12.0-16.0); LYMPHOCYTES % (AUTO) 38.1 % (20.0-45.0); MEAN CORPUSCULAR VOLUME 91 FL (80-99); NEUTROPHILS % (AUTO) 51.2 % (45.0-75.0); PLATELET COUNT 127 K/UL (150-450); RED BLOOD COUNT 3.58 M/UL (4.20-5.40); RED CELL DISTRIBUTION WIDTH 12.7 % (11.6-14.8)
[2019-02-02 07:15] LABS: ALANINE AMINOTRANSFERASE 32 U/L (12-78); ALBUMIN 2.4 G/DL (3.4-5.0); ALBUMIN/GLOBULIN RATIO 0.7 (1.0-2.7); ALKALINE PHOSPHATASE 114 U/L (46-116); ANION GAP 8 mmol/L (5-15); ASPARTATE AMINO TRANSFERASE 32 U/L (15-37); BILIRUBIN,TOTAL 0.3 MG/DL (0.2-1.0); BLOOD UREA NITROGEN 3 mg/dL (7-18); CALCIUM 8.3 MG/DL (8.5-10.1); CARBON DIOXIDE 24 MMOL/L (21-32); CHLORIDE 115 MMOL/L (98-107); CREATININE 0.8 MG/DL (0.55-1.30); POTASSIUM 3.7 MMOL/L (3.5-5.1); SODIUM 147 MMOL/L (136-145)
--- NOTE | 2019-02-02 07:43 | NUR ---
HAND-OFF: Report given to ALISE Cramer. Patient is awake and in bed, VS stable.
--- NOTE | 2019-02-02 07:44 | NUR ---
NURSE NOTES: Received patient from Guillaume CARRERO in bed, denies any pain at this time. Patient is on full liquid diet and eat 100% for breakfast. IV is intact and patent running D5 NS @ 100cc/hr. Bed is on lowest position, brakes engaged for safety, bedside rails up x3. Will continue with the plan of care.
[2019-02-02 08:00] VITALS: BP 137/73
[2019-02-02] MEDS: Pancrelipase Dr Cap ORAL SCH ×3 (08:35→17:17)
--- NOTE | 2019-02-02 10:57 | General Progress Note ---
Assessment/Plan Status: stable Assessment/Plan: S: I am ok O: Seems comfortable, denies abd pain PHYSICAL EXAMINATION: HEAD AND NECK: Atraumatic and normocephalic. ABDOMEN: Soft. No organomegaly. Normal bowel sounds. MUSCULOSKELETAL: No gross muscle deficit. LABORATORY DATA: Labs dated 01/22/2019 reviwed Imaging : MRCP report reviwed ASSESSMENT AND PLAN: 1. Acute biliary colic. 2. Acute gastritis. 3. Diabetes type 2. 4. Hyperlipidemia. 5. Thrombocytopenia. 6. Hypokalemia. 7. GI and DVT prophylaxis. PLAN OF CARE: Plan: MRCP notres from GI and Surgeon are reviewed once clear by gi may followup as op Subjective Allergies: Coded Allergies: No Known Allergies (Unverified , 01/30/19) Objective Last 24 Hour Vital Signs Date Time Temp Pulse Resp B/P (MAP) Pulse Ox O2 Delivery O2 Flow Rate FiO2 02/02/19 09:00 Room Air 02/02/19 08:00 98.2 59 18 137/73 (94) 98 02/02/19 03:55 98.5 53 18 122/57 (78) 97 02/02/19 00:00 98.2 51 19 115/61 (79) 98 02/01/19 21:00 Room Air 02/01/19 20:00 98.1 52 18 124/57 (79) 97 02/01/19 16:00 98.5 58 18 105/58 (74) 96 02/01/19 12:00 98.6 50 18 117/57 (77) 96 Intake and Output 02/01/19 02/02/19 19:00 07:00 Intake Total 2490 ml 575 ml Balance 2490 ml 575 ml Intake Oral 1290 ml 575 ml IV Total 1200 ml # Voids 4 4 # Bowel Movements 2 Laboratory Tests 02/02/19 04:45: White Blood Count 4.0L, Red Blood Count 3.58L, Hemoglobin 10.8L, Hematocrit 32.6L, Mean Corpuscular Volume 91, Mean Corpuscular Hemoglobin 30.1, Mean Corpuscular Hemoglobin Concent 33.1, Red Cell Distribution Width 12.7, Platelet Count 127L, Mean Platelet Volume 10.2H, Neutrophils (%) (Auto) 51.2, Lymphocytes (%) (Auto) 38.1, Monocytes (%) (Auto) 6.0, Eosinophils (%) (Auto) 4.0H, Basophils (%) (Auto) 0.7, Sodium Level 147H, Potassium Level 3.7, Chloride Level 115H, Carbon Dioxide Level 24, Anion Gap 8, Blood Urea Nitrogen 3L, Creatinine 0.8, Estimat Glomerular Filtration Rate > 60, Glucose Level 125H , Calcium Level 8.3L, Total Bilirubin 0.3, Aspartate Amino Transf (AST/SGOT) 32 , Alanine Aminotransferase (ALT/SGPT) 32, Alkaline Phosphatase 114, Total Protein 5.9L, Albumin 2.4L, Globulin 3.5, Albumin/Globulin Ratio 0.7L Height (Feet): 4 Height (Inches): 11.00 Weight (Pounds): 123 Gilberto Holcomb MD Feb 02, 2019 10:56
[2019-02-02 12:00] VITALS: BP 122/61
--- NOTE | 2019-02-02 12:32 | Hematology/Onc Progress Note ---
Assessment/Plan Assessment/Plan # Thrombocytopenia - potential causes multifactorial, evaluate liver and viral etiologies to begin, also could be due to inflamm process from stone --> Hep panel pending, HIV negative --> US abd and mri doesn't show cirrhosis/or large spleen --> Peripheral smear ordered to evaluate for blasts /schistocytes --> abx and other meds have been reviewed --> ok for ppx if plt >50k w/ either heparin or lovenox --> Transfuse if Plt < 20k and fever, or if Plt < 10k without fever --> plt trend: 127k # Anemia of chronic disease (or of iron deficiency) due to underlying chronic medical issues, multifactorial --> Hgb currently >10, no w/u required at this time --> No evidence of hemolysis is noted, peripheral smear has been reviewed. --> Hgb goal >7. Transfuse prn. --> Epogen or iron at this time is not particularly indicated --> Medications have been reviewed --> hgb trend: 10.8 --> low threshold for gi evaluation in case has occult + --> bone marrow biopsy is not indicated given the other more likely causes # Abd pain may be due to dilated CBD --> pancreatic duct stone with dilated pancreatic duct --> gi /surg care --> pending potential transf # Dvt ppx scds The timing of this note does not necessarily reflect the time of the patient was seen. Greatly appreciate consultation. Subjective Allergies: Coded Allergies: No Known Allergies (Unverified , 01/30/19) Subjective 02/01: no events, plt is somewhat lower, get hep and hiv panels 02/02:hiv negative, hep panel pending, lovenox discontinued Objective Objective Current Medications Medications (Trade) Dose Ordered Sig/J Luis Route PRN Reason Start Time Stop Time Status Last Admin Dose Admin Amylase/Lipase/ Protease (Zenpep) 4 ea THREE TIMES A DAY ORAL 02/01/19 13:00 03/03/19 12:59 02/02/19 12:11 Dextrose (Dextrose 50%) 25 ml Q30M PRN IV Hypoglycemia 01/30/19 23:15 03/01/19 23:14 Dextrose/Sodium Chloride 1,000 ml @ 100 mls/hr Q10H IV 01/30/19 23:15 03/01/19 23:14 02/02/19 11:49 Insulin Aspart (NovoLOG) AC+HS SUBQ 01/31/19 06:30 03/02/19 06:29 02/02/19 11:52 Morphine Sulfate (Morphine Sulfate) 2 mg Q4H PRN IVP For Pain (4-10) 01/30/19 23:15 02/06/19 23:14 Ondansetron HCl (Zofran) 4 mg Q6H PRN IVP Nausea & Vomiting 01/30/19 23:15 03/01/19 23:14 Pantoprazole (Protonix) 40 mg DAILY@0630 IVP 01/31/19 06:30 03/02/19 06:29 02/02/19 06:05 Piperacillin Sod/ Tazobactam Sod 3.375 gm/Sodium Chloride 110 ml @ 27.5 mls/hr EVERY 8 HOURS IVPB 01/31/19 06:00 02/05/19 05:59 02/02/19 05:56 Last 24 Hour Vital Signs Date Time Temp Pulse Resp B/P (MAP) Pulse Ox O2 Delivery O2 Flow Rate FiO2 02/02/19 09:00 Room Air 02/02/19 08:00 98.2 59 18 137/73 (94) 98 02/02/19 03:55 98.5 53 18 122/57 (78) 97 02/02/19 00:00 98.2 51 19 115/61 (79) 98 02/01/19 21:00 Room Air 02/01/19 20:00 98.1 52 18 124/57 (79) 97 02/01/19 16:00 98.5 58 18 105/58 (74) 96 02/01/19 12:00 98.6 50 18 117/57 (77) 96 02/01/19 08:09 Room Air 02/01/19 08:01 99.4 52 18 114/58 (76) 96 02/01/19 04:00 98.3 52 18 108/43 (64) 94 01/31/19 23:57 98.5 64 18 94/49 (64) 94 01/31/19 21:00 Room Air 01/31/19 20:00 98.6 56 18 110/55 (73) 95 01/31/19 16:00 98.3 71 18 108/58 (75) 97 Intake and Output 02/01/19 02/02/19 19:00 07:00 Intake Total 2490 ml 575 ml Balance 2490 ml 575 ml Intake Oral 1290 ml 575 ml IV Total 1200 ml # Voids 4 4 # Bowel Movements 2 Labs Test 01/30/19 18:45 01/31/19 05:10 02/01/19 05:30 02/02/19 04:45 White Blood Count 11.3 K/UL (4.8-10.8) 10.5 K/UL (4.8-10.8) 5.5 K/UL (4.8-10.8) 4.0 K/UL (4.8-10.8) Red Blood Count 4.12 M/UL (4.20-5.40) 3.83 M/UL (4.20-5.40) 3.52 M/UL (4.20-5.40) 3.58 M/UL (4.20-5.40) Hemoglobin 12.5 G/DL (12.0-16.0) 11.6 G/DL (12.0-16.0) 10.5 G/DL (12.0-16.0) 10.8 G/DL (12.0-16.0) Hematocrit 35.2 % (37.0-47.0) 34.1 % (37.0-47.0) 31.7 % (37.0-47.0) 32.6 % (37.0-47.0) Mean Corpuscular Volume 86 FL (80-99) 89 FL (80-99) 90 FL (80-99) 91 FL (80- 99) Mean Corpuscular Hemoglobin 30.3 PG (27.0-31.0) 30.2 PG (27.0-31.0) 29.8 PG (27.0-31.0) 30.1 PG (27.0-31.0) Mean Corpuscular Hemoglobin Concent 35.4 G/DL (32.0-36.0) 33.9 G/DL (32.0-36.0) 33.1 G/DL (32.0-36.0) 33.1 G/DL (32.0-36.0) Red Cell Distribution Width 11.9 % (11.6-14.8) 12.1 % (11.6-14.8) 12.5 % (11.6-14.8) 12.7 % (11.6-14.8) Platelet Count 149 K/UL (150-450) 139 K/UL (150-450) 112 K/UL (150-450) 127 K/UL (150-450) Mean Platelet Volume 7.7 FL (6.5-10.1) 9.1 FL (6.5-10.1) 8.6 FL (6.5-10.1) 10.2 FL (6.5-10.1) Neutrophils (%) (Auto) 81.3 % (45.0-75.0) 78.7 % (45.0-75.0) 70.0 % (45.0-75.0) 51.2 % (45.0-75.0) Lymphocytes (%) (Auto) 11.7 % (20.0-45.0) 13.9 % (20.0-45.0) 20.8 % (20.0-45.0) 38.1 % (20.0-45.0) Monocytes (%) (Auto) 6.4 % (1.0-10.0) 6.5 % (1.0-10.0) 6.1 % (1.0-10.0) 6.0 % (1.0-10.0) Eosinophils (%) (Auto) 0.2 % (0.0-3.0) 0.5 % (0.0-3.0) 2.6 % (0.0-3.0) 4.0 % (0.0-3.0) Basophils (%) (Auto) 0.4 % (0.0-2.0) 0.4 % (0.0-2.0) 0.6 % (0.0-2.0) 0.7 % (0.0-2.0) Urine Color Pale yellow Urine Appearance Clear Urine pH 6.5 (4.5-8.0) Urine Specific [place] 1.010 (1.005-1.035) Urine Protein Negative (NEGATIVE) Urine Glucose (UA) Negative (NEGATIVE) Urine Ketones Negative (NEGATIVE) Urine Blood 2+ (NEGATIVE) Urine Nitrite Negative (NEGATIVE) Urine Bilirubin Negative (NEGATIVE) Urine Urobilinogen Normal MG/DL (0.0-1.0) Urine Leukocyte Esterase 1+ (NEGATIVE) Urine RBC 2-4 /HPF (0 - 2) Urine WBC 0-2 /HPF (0 - 2) Urine Squamous Epithelial Cells Few /LPF (NONE/OCC) Urine Bacteria Few /HPF (NONE) Sodium Level 142 MMOL/L (136-145) 140 MMOL/L (136-145) 144 MMOL/L (136-145) 147 MMOL/L (136-145) Potassium Level 3.1 MMOL/L (3.5-5.1) 3.9 MMOL/L (3.5-5.1) 3.7 MMOL/L (3.5-5.1) 3.7 MMOL/L (3.5-5.1) Chloride Level 105 MMOL/L (98-107) 107 MMOL/L (98-107) 111 MMOL/L (98-107) 115 MMOL/L (98-107) Carbon Dioxide Level 29 MMOL/L (21-32) 27 MMOL/L (21-32) 26 MMOL/L (21-32) 24 MMOL/L (21-32) Anion Gap 8 mmol/L (5-15) 6 mmol/L (5-15) 7 mmol/L (5-15) 8 mmol/L (5-15) Blood Urea Nitrogen 6 mg/dL (7-18) 7 mg/dL (7-18) 7 mg/dL (7-18) 3 mg/dL (7- 18) Creatinine 0.9 MG/DL (0.55-1.30) 0.7 MG/DL (0.55-1.30) 0.8 MG/DL (0.55-1.30) 0.8 MG/DL (0.55-1.30) Estimat Glomerular Filtration Rate > 60 mL/min (>60) > 60 mL/min (>60) > 60 mL/min (>60) > 60 mL/min (>60) Glucose Level 137 MG/DL (74-106) 134 MG/DL (74-106) 163 MG/DL (74-106) 125 MG/DL (74-106) Calcium Level 8.8 MG/DL (8.5-10.1) 8.2 MG/DL (8.5-10.1) 8.2 MG/DL (8.5-10.1) 8.3 MG/DL (8.5-10.1) Total Bilirubin 0.5 MG/DL (0.2-1.0) 0.5 MG/DL (0.2-1.0) 0.4 MG/DL (0.2-1.0) 0.3 MG/DL (0.2-1.0) Aspartate Amino Transf (AST/SGOT) 18 U/L (15-37) 18 U/L (15-37) 28 U/L (15-37) 32 U/L (15-37) Alanine Aminotransferase (ALT/SGPT) 21 U/L (12-78) 26 U/L (12-78) 24 U/L (12-78) 32 U/L (12-78) Alkaline Phosphatase 116 U/L (46-116) 110 U/L (46-116) 109 U/L (46-116) 114 U/L (46-116) Troponin I 0.000 ng/mL (0.000-0.056) Total Protein 7.0 G/DL (6.4-8.2) 6.3 G/DL (6.4-8.2) 6.1 G/DL (6.4-8.2) 5.9 G/DL (6.4-8.2) Albumin 3.1 G/DL (3.4-5.0) 2.7 G/DL (3.4-5.0) 2.6 G/DL (3.4-5.0) 2.4 G/DL (3.4-5.0) Globulin 3.9 g/dL 3.6 g/dL 3.5 g/dL 3.5 g/dL Albumin/Globulin Ratio 0.8 (1.0-2.7) 0.8 (1.0-2.7) 0.7 (1.0-2.7) 0.7 (1.0-2.7 ) Lipase 36 U/L (73-393) 30 U/L (73-393) Hemoglobin A1c 7.3 % (4.3-6.0) Triglycerides Level 70 MG/DL (30-150) Cholesterol Level 121 MG/DL (< 200) LDL Cholesterol 76 mg/dL (<100) HDL Cholesterol 29 MG/DL (40-60) Cholesterol/HDL Ratio 4.2 (3.3-4.4) Amylase Level 16 U/L (25-115) Thyroid Stimulating Hormone (TSH) 0.827 uiU/mL (0.358-3.740) Vitamin B12 Level 362 PG/ML (193-986) HIV (1&2) Antibody Rapid Negative (NEGATIVE) Height (Feet): 4 Height (Inches): 11.00 Weight (Pounds): 123 Objective Physical Exam: Vitals: reviewed General Appearance: NAD HEENT: normocephalic, atraumatic Neck: non-tender, normal alignment Respiratory/Chest: normal breath sounds bilaterally Cardiovascular/Chest: normal peripheral pulses, normal rate Abdomen: normal bowel sounds, soft, nontender Extremities: normal range of motion Cuco Erwin MD Feb 02, 2019 12:32
--- NOTE | 2019-02-02 13:09 | NUR ---
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
--- NOTE | 2019-02-02 13:30 | General Progress Note ---
Assessment/Plan Status: stable Assessment/Plan: abd pain dilated CBD pancreatic duct stone dilated pancreatic duct chronic pancreatitis normal LFTS MRCP reviewed needs out patient referral to a tertiary center for pancreatic duct stone removal add creon fu labs fu surg consult dc planning per primary team Subjective ROS Limited/Unobtainable: Yes Allergies: Coded Allergies: No Known Allergies (Unverified , 01/30/19) Objective Last 24 Hour Vital Signs Date Time Temp Pulse Resp B/P (MAP) Pulse Ox O2 Delivery O2 Flow Rate FiO2 02/02/19 12:00 97.5 50 18 122/61 (81) 99 02/02/19 09:00 Room Air 02/02/19 08:00 98.2 59 18 137/73 (94) 98 02/02/19 03:55 98.5 53 18 122/57 (78) 97 02/02/19 00:00 98.2 51 19 115/61 (79) 98 02/01/19 21:00 Room Air 02/01/19 20:00 98.1 52 18 124/57 (79) 97 02/01/19 16:00 98.5 58 18 105/58 (74) 96 Intake and Output 02/01/19 02/02/19 19:00 07:00 Intake Total 2490 ml 575 ml Balance 2490 ml 575 ml Intake Oral 1290 ml 575 ml IV Total 1200 ml # Voids 4 4 # Bowel Movements 2 Laboratory Tests 02/02/19 04:45: White Blood Count 4.0L, Red Blood Count 3.58L, Hemoglobin 10.8L, Hematocrit 32.6L, Mean Corpuscular Volume 91, Mean Corpuscular Hemoglobin 30.1, Mean Corpuscular Hemoglobin Concent 33.1, Red Cell Distribution Width 12.7, Platelet Count 127L, Mean Platelet Volume 10.2H, Neutrophils (%) (Auto) 51.2, Lymphocytes (%) (Auto) 38.1, Monocytes (%) (Auto) 6.0, Eosinophils (%) (Auto) 4.0H, Basophils (%) (Auto) 0.7, Sodium Level 147H, Potassium Level 3.7, Chloride Level 115H, Carbon Dioxide Level 24, Anion Gap 8, Blood Urea Nitrogen 3L, Creatinine 0.8, Estimat Glomerular Filtration Rate > 60, Glucose Level 125H , Calcium Level 8.3L, Total Bilirubin 0.3, Aspartate Amino Transf (AST/SGOT) 32 , Alanine Aminotransferase (ALT/SGPT) 32, Alkaline Phosphatase 114, Total Protein 5.9L, Albumin 2.4L, Globulin 3.5, Albumin/Globulin Ratio 0.7L Height (Feet): 4 Height (Inches): 11.00 Weight (Pounds): 123 General Appearance: no apparent distress EENT: normal ENT inspection Neck: supple Cardiovascular: normal rate Respiratory/Chest: lungs clear Abdomen: normal bowel sounds, non tender, soft Extremities: non-tender Anshul Chang MD Feb 02, 2019 13:30
--- NOTE | 2019-02-02 14:26 | Surgery Progress Note ---
Surgery Progress Note Subjective Symptoms: improved, pain absent, tolerating diet, voiding well, passing flatus Objective Last 24 Hour Vital Signs Date Time Temp Pulse Resp B/P (MAP) Pulse Ox O2 Delivery O2 Flow Rate FiO2 02/02/19 12:00 97.5 50 18 122/61 (81) 99 02/02/19 09:00 Room Air 02/02/19 08:00 98.2 59 18 137/73 (94) 98 02/02/19 03:55 98.5 53 18 122/57 (78) 97 02/02/19 00:00 98.2 51 19 115/61 (79) 98 02/01/19 21:00 Room Air 02/01/19 20:00 98.1 52 18 124/57 (79) 97 02/01/19 16:00 98.5 58 18 105/58 (74) 96 I&O Intake and Output 02/01/19 02/02/19 19:00 07:00 Intake Total 2490 ml 575 ml Balance 2490 ml 575 ml Intake Oral 1290 ml 575 ml IV Total 1200 ml # Voids 4 4 # Bowel Movements 2 Cardiovascular: RSR Respiratory: clear Abdomen: soft, flat, non-tender, present bowel sounds, non-distended Extremities: no edema, no tenderness, no cyanosis Laboratory Tests Test 02/02/19 04:45 White Blood Count 4.0 K/UL (4.8-10.8) L Red Blood Count 3.58 M/UL (4.20-5.40) L Hemoglobin 10.8 G/DL (12.0-16.0) L Hematocrit 32.6 % (37.0-47.0) L Mean Corpuscular Volume 91 FL (80-99) Mean Corpuscular Hemoglobin 30.1 PG (27.0-31.0) Mean Corpuscular Hemoglobin Concent 33.1 G/DL (32.0-36.0) Red Cell Distribution Width 12.7 % (11.6-14.8) Platelet Count 127 K/UL (150-450) L Mean Platelet Volume 10.2 FL (6.5-10.1) H Neutrophils (%) (Auto) 51.2 % (45.0-75.0) Lymphocytes (%) (Auto) 38.1 % (20.0-45.0) Monocytes (%) (Auto) 6.0 % (1.0-10.0) Eosinophils (%) (Auto) 4.0 % (0.0-3.0) H Basophils (%) (Auto) 0.7 % (0.0-2.0) Sodium Level 147 MMOL/L (136-145) H Potassium Level 3.7 MMOL/L (3.5-5.1) Chloride Level 115 MMOL/L (98-107) H Carbon Dioxide Level 24 MMOL/L (21-32) Anion Gap 8 mmol/L (5-15) Blood Urea Nitrogen 3 mg/dL (7-18) L Creatinine 0.8 MG/DL (0.55-1.30) Estimat Glomerular Filtration Rate > 60 mL/min (>60) Glucose Level 125 MG/DL (74-106) H Calcium Level 8.3 MG/DL (8.5-10.1) L Total Bilirubin 0.3 MG/DL (0.2-1.0) Aspartate Amino Transf (AST/SGOT) 32 U/L (15-37) Alanine Aminotransferase (ALT/SGPT) 32 U/L (12-78) Alkaline Phosphatase 114 U/L (46-116) Total Protein 5.9 G/DL (6.4-8.2) L Albumin 2.4 G/DL (3.4-5.0) L Globulin 3.5 g/dL Albumin/Globulin Ratio 0.7 (1.0-2.7) L Plan Problems: (1) Choledocholithiasis Assessment & Plan: 68F with epi/ruq abd pain, hx of gallstones, leukocytosis, afebrile, nml lft's. US as below iv fluids iv abx MRCP noted okay for diet d/c planning as per GI with outpatient tertiary center f/u for stone removal discussed care plan with son who expressed understanding will follow with recs thank you Impression: Markedly dilated pancreatic duct, with evidence of a 1 cm stone within the downstream pancreatic duct near the ampulla. Uncertain as to whether the ductal dilatation is due to obstruction by stone, versus related to chronic calcifying pancreatitis (pancreatic calcifications demonstrated on recent sonogram post ( versus occult pancreatic head mass. Consider further evaluation with endoscopic sonography. Dilated common bile duct, without a definite common duct stone. There may be prominence to the papilla, and ampullary tumor is therefore not excludable. Cholelithiasis Note phrygian cap anatomy to the gallbladder-normal anatomic variant Findings: Gallbladder demonstrates gallstones in the neck. No gallbladder wall thickening or pericholecystic fluid is also sludge in the gallbladder. Technologist reports that the sonographic Abdalla's sign is positive. Common bile duct measures 13 mm in diameter. There is mild central intrahepatic biliary ductal dilatation.. Liver demonstrates normal echogenicity, no focal abnormality. Portal vein and hepatic veins are patent. The pancreas demonstrates heterogeneous echogenicity and likely multiple calcifications. Spleen is unremarkable. Left kidney measures 9.7 cm in length. Right kidney measures 11.5 cm length. Both kidneys demonstrate normal echogenicity. There is no hydronephrosis. No focal abnormality . Abdominal aorta is partially obscured by bowel gas, visualized portions are non-aneurysmal . Impression: Cholelithiasis and gallbladder sludge. Positive sonographic Abdalla' s sign raises concern for acute cholecystitis. Consider hepatobiliary nuclear scanning if there is high clinical suspicion Dilated common bile duct and mild central intrahepatic biliary ductal dilatation. This is concerning for downstream obstruction. Heterogeneous pancreas with possible calcifications, could indicate chronic pancreatitis Note incomplete visualization of the distal abdominal aorta Rudy Guadarrama Feb 02, 2019 14:26
[2019-02-02 16:00] VITALS: BP 133/60
--- NOTE | 2019-02-02 16:14 | Infectious Diseases Prog Note ---
Assessment/Plan Problems: (1) Choledocholithiasis Assessment & Plan: with no gallbladder wall thickening or edema or fluids around it, doubt cholecystitis , MRCP possible distal panceriatic duct ston VS tumor , may need EUS confirm , continue zosyn empirically for now surgery AND GI are following (2) Abdominal pain Assessment & Plan: due to the above with possible passing stone, continue pain management as primary Subjective Constitutional: Reports: no symptoms HEENT: Reports: no symptoms Respiratory: Reports: no symptoms Breasts: Reports: no symptoms Cardiovascular: Reports: no symptoms Gastrointestinal/Abdominal: Reports: bloating Genitourinary: Reports: no symptoms Neurologic: Reports: no symptoms Psychiatric: Reports: no symptoms Skin: Reports: no symptoms Endocrine: Reports: no symptoms Hematologic: Reports: no symptoms Musculoskeletal: Reports: no symptoms Allergies: Coded Allergies: No Known Allergies (Unverified , 01/30/19) Objective Vital Signs Last 24 Hour Vital Signs Date Time Temp Pulse Resp B/P (MAP) Pulse Ox O2 Delivery O2 Flow Rate FiO2 02/02/19 12:00 97.5 50 18 122/61 (81) 99 02/02/19 09:00 Room Air 02/02/19 08:00 98.2 59 18 137/73 (94) 98 02/02/19 03:55 98.5 53 18 122/57 (78) 97 02/02/19 00:00 98.2 51 19 115/61 (79) 98 02/01/19 21:00 Room Air 02/01/19 20:00 98.1 52 18 124/57 (79) 97 Height (Feet): 4 Height (Inches): 11.00 Weight (Pounds): 123 General Appearance: WD/WN, no acute distress HEENT: normocephalic, atraumatic, anicteric, mucous membranes moist, PERRL Respiratory/Chest: chest wall non-tender, lungs clear, normal breath sounds, no respiratory distress, no accessory muscle use Cardiovascular: normal peripheral pulses, normal rate, regular rhythm, no gallop/murmur, no JVD Abdomen: normal bowel sounds, no organomegaly, non distended, no mass, no scars , tender Extremities: no cyanosis, no clubbing Skin: no rash, no lesions, no ulcers Neurologic/Psychiatric: axminster weaver II-XII grossly normal, alert, oriented x 3, responsive Lymphatic: no neck adenopathy, no groin adenopathy Musculoskeletal: normal muscle bulk, no effusion Laboratory Tests Test 02/02/19 04:45 White Blood Count 4.0 K/UL (4.8-10.8) L Red Blood Count 3.58 M/UL (4.20-5.40) L Hemoglobin 10.8 G/DL (12.0-16.0) L Hematocrit 32.6 % (37.0-47.0) L Mean Corpuscular Volume 91 FL (80-99) Mean Corpuscular Hemoglobin 30.1 PG (27.0-31.0) Mean Corpuscular Hemoglobin Concent 33.1 G/DL (32.0-36.0) Red Cell Distribution Width 12.7 % (11.6-14.8) Platelet Count 127 K/UL (150-450) L Mean Platelet Volume 10.2 FL (6.5-10.1) H Neutrophils (%) (Auto) 51.2 % (45.0-75.0) Lymphocytes (%) (Auto) 38.1 % (20.0-45.0) Monocytes (%) (Auto) 6.0 % (1.0-10.0) Eosinophils (%) (Auto) 4.0 % (0.0-3.0) H Basophils (%) (Auto) 0.7 % (0.0-2.0) Sodium Level 147 MMOL/L (136-145) H Potassium Level 3.7 MMOL/L (3.5-5.1) Chloride Level 115 MMOL/L (98-107) H Carbon Dioxide Level 24 MMOL/L (21-32) Anion Gap 8 mmol/L (5-15) Blood Urea Nitrogen 3 mg/dL (7-18) L Creatinine 0.8 MG/DL (0.55-1.30) Estimat Glomerular Filtration Rate > 60 mL/min (>60) Glucose Level 125 MG/DL (74-106) H Calcium Level 8.3 MG/DL (8.5-10.1) L Total Bilirubin 0.3 MG/DL (0.2-1.0) Aspartate Amino Transf (AST/SGOT) 32 U/L (15-37) Alanine Aminotransferase (ALT/SGPT) 32 U/L (12-78) Alkaline Phosphatase 114 U/L (46-116) Total Protein 5.9 G/DL (6.4-8.2) L Albumin 2.4 G/DL (3.4-5.0) L Globulin 3.5 g/dL Albumin/Globulin Ratio 0.7 (1.0-2.7) L Current Medications Medications (Trade) Dose Ordered Sig/J Luis Route PRN Reason Start Time Stop Time Status Last Admin Dose Admin Amylase/Lipase/ Protease (Zenpep) 4 ea THREE TIMES A DAY ORAL 02/01/19 13:00 03/03/19 12:59 02/02/19 12:11 Dextrose (Dextrose 50%) 25 ml Q30M PRN IV Hypoglycemia 01/30/19 23:15 03/01/19 23:14 Dextrose/Sodium Chloride 1,000 ml @ 100 mls/hr Q10H IV 01/30/19 23:15 03/01/19 23:14 02/02/19 11:49 Insulin Aspart (NovoLOG) AC+HS SUBQ 01/31/19 06:30 03/02/19 06:29 02/02/19 11:52 Morphine Sulfate (Morphine Sulfate) 2 mg Q4H PRN IVP For Pain (4-10) 01/30/19 23:15 02/06/19 23:14 Ondansetron HCl (Zofran) 4 mg Q6H PRN IVP Nausea & Vomiting 01/30/19 23:15 03/01/19 23:14 Pantoprazole (Protonix) 40 mg DAILY@0630 IVP 01/31/19 06:30 03/02/19 06:29 02/02/19 06:05 Piperacillin Sod/ Tazobactam Sod 3.375 gm/Sodium Chloride 110 ml @ 27.5 mls/hr EVERY 8 HOURS IVPB 01/31/19 06:00 02/05/19 05:59 02/02/19 13:30 Janes Bolaños M.D. Feb 02, 2019 16:14
--- NOTE | 2019-02-02 19:30 | NUR ---
NURSE NOTES: Patient received in bed, awake and alert. No signs of acute distress at this time. IV infusing on RAC, intact and patent. Call light within reach. Will monitor.
--- NOTE | 2019-02-02 19:44 | NUR ---
HAND-OFF: Report given to ALISE Price. Patient is in stable condition.
[2019-02-02 20:00] VITALS: BP 120/61
--- NOTE | 2019-02-02 21:30 | NUR ---
NURSE NOTES: Dr. Holcomb made aware of pt BBS 277. MD order to DC IVF of D5NS. Order carried out and noted.
[2019-02-03] VITALS: BP 135/65
[2019-02-03 04:00] VITALS: BP 122/60
[2019-02-03] MEDS: NovoLOG Insulin Flexpen SUBQ SCH ×4 (05:49→21:15)
[2019-02-03] MEDS: Piperacillin/Tazobactam 3.375 GM in NS 110 ML IVPB SCH ×3 (05:49→21:22)
[2019-02-03] MEDS: Pantoprazole Inj IVP SCH (05:49)
--- NOTE | 2019-02-03 07:39 | NUR ---
HAND-OFF: Report given to Jenni CARRERO.
--- NOTE | 2019-02-03 07:41 | NUR ---
NURSE NOTES: Received pt from ALISE Ashley. Pt awake, alert, and talkative. Bed in lowest position. Call light within reach. Will continue to monitor.
[2019-02-03 08:00] VITALS: BP 120/64
[2019-02-03] MEDS: Pancrelipase Dr Cap ORAL SCH ×3 (08:21→18:18)
--- NOTE | 2019-02-03 09:28 | General Progress Note ---
Assessment/Plan Status: stable Assessment/Plan: abd pain dilated CBD pancreatic duct stone dilated pancreatic duct chronic pancreatitis normal LFTS MRCP reviewed needs out patient referral to a tertiary center for pancreatic duct stone removal creon fu labs fu surg consult dc planning per primary team Subjective ROS Limited/Unobtainable: Yes Allergies: Coded Allergies: No Known Allergies (Unverified , 01/30/19) Objective Last 24 Hour Vital Signs Date Time Temp Pulse Resp B/P (MAP) Pulse Ox O2 Delivery O2 Flow Rate FiO2 02/03/19 09:00 Room Air Room Air 02/03/19 08:00 98.8 56 18 120/64 (82) 95 02/03/19 04:00 98.4 58 18 122/60 (80) 98 02/03/19 00:00 97.9 60 18 135/65 (88) 96 02/02/19 21:00 Room Air 02/02/19 20:00 99.0 57 18 120/61 (80) 97 02/02/19 16:00 97.6 56 18 133/60 (84) 98 02/02/19 12:00 97.5 50 18 122/61 (81) 99 Intake and Output 02/02/19 02/03/19 18:59 06:59 Intake Total 400 ml 437.5 ml Balance 400 ml 437.5 ml Intake Oral 400 ml IV Total 437.5 ml # Voids 4 3 # Bowel Movements 1 Height (Feet): 4 Height (Inches): 11.00 Weight (Pounds): 123 General Appearance: alert EENT: normal ENT inspection Neck: supple Cardiovascular: normal rate Respiratory/Chest: lungs clear Abdomen: normal bowel sounds, non tender, soft Extremities: non-tender Anshul Chang MD Feb 03, 2019 09:28
--- NOTE | 2019-02-03 10:05 | General Progress Note ---
Assessment/Plan Status: stable Assessment/Plan: S: I am ok O: Seems comfortable, denies abd pain PHYSICAL EXAMINATION: HEAD AND NECK: Atraumatic and normocephalic. ABDOMEN: Soft. No organomegaly. Normal bowel sounds. MUSCULOSKELETAL: No gross muscle deficit. LABORATORY DATA: Labs dated 01/22/2019 reviwed Imaging : MRCP report reviwed ASSESSMENT AND PLAN: 1. Acute biliary colic. 2. Acute gastritis. 3. Diabetes type 2. 4. Hyperlipidemia. 5. Thrombocytopenia. 6. Hypokalemia. 7. GI and DVT prophylaxis. PLAN OF CARE: Plan: MRCP notres from GI and Surgeon are reviewed D/w Surgeon, No surgical intervention at this time Subjective Allergies: Coded Allergies: No Known Allergies (Unverified , 01/30/19) Objective Last 24 Hour Vital Signs Date Time Temp Pulse Resp B/P (MAP) Pulse Ox O2 Delivery O2 Flow Rate FiO2 02/03/19 09:00 Room Air Room Air 02/03/19 08:00 98.8 56 18 120/64 (82) 95 02/03/19 04:00 98.4 58 18 122/60 (80) 98 02/03/19 00:00 97.9 60 18 135/65 (88) 96 02/02/19 21:00 Room Air 02/02/19 20:00 99.0 57 18 120/61 (80) 97 02/02/19 16:00 97.6 56 18 133/60 (84) 98 02/02/19 12:00 97.5 50 18 122/61 (81) 99 Intake and Output 02/02/19 02/03/19 18:59 06:59 Intake Total 400 ml 437.5 ml Balance 400 ml 437.5 ml Intake Oral 400 ml IV Total 437.5 ml # Voids 4 3 # Bowel Movements 1 Height (Feet): 4 Height (Inches): 11.00 Weight (Pounds): 123 Gilberto Holcomb MD Feb 03, 2019 10:05
--- NOTE | 2019-02-03 10:46 | NUR ---
NURSE NOTES: Called and left a message with GREGG Hummel, regarding pts f/u appt before i discharge her. Awaiting call back.
--- NOTE | 2019-02-03 11:09 | NUR ---
NURSE NOTES: Called and left a message with Dr. Holcomb regarding pts SB and appointment f/u. Awaiting call back.
--- NOTE | 2019-02-03 11:12 | NUR ---
NURSE NOTES: Dr. Holcomb gave the following orders: - Get clearance from Dr. Vasquez - Input STAT echo if it hasn't been done yet Will input orders and will continue to monitor.
[2019-02-03 12:00] VITALS: BP 133/60
[2019-02-03] MEDS ORDERED: D5NS 1000ml IV ONE (12:57)
[2019-02-03] MEDS ORDERED: 1/2 NS 1000ml IV ONE (12:57)
--- NOTE | 2019-02-03 13:12 | NUR ---
NURSE NOTES: Called and left a message with Dr. Vasquez regarding 2d echo results. Awaiting call back for clearance.
[2019-02-03] MEDS ORDERED: CIPRO500 MG/51 PO (14:07)
--- NOTE | 2019-02-03 15:09 | Surgery Progress Note ---
Surgery Progress Note Subjective Symptoms: improved, tolerating diet, voiding well, passing flatus, BM Objective Last 24 Hour Vital Signs Date Time Temp Pulse Resp B/P (MAP) Pulse Ox O2 Delivery O2 Flow Rate FiO2 02/03/19 12:00 97.7 47 20 133/60 (84) 99 02/03/19 09:00 Room Air Room Air 02/03/19 08:00 98.8 56 18 120/64 (82) 95 02/03/19 04:00 98.4 58 18 122/60 (80) 98 02/03/19 00:00 97.9 60 18 135/65 (88) 96 02/02/19 21:00 Room Air 02/02/19 20:00 99.0 57 18 120/61 (80) 97 02/02/19 16:00 97.6 56 18 133/60 (84) 98 I&O Intake and Output 02/02/19 02/03/19 19:00 07:00 Intake Total 500 ml 337.5 ml Balance 500 ml 337.5 ml Intake Oral 400 ml IV Total 100 ml 337.5 ml # Voids 4 3 # Bowel Movements 1 Cardiovascular: RSR Respiratory: clear Abdomen: soft, flat, non-tender, present bowel sounds, non-distended Extremities: no edema, no tenderness, no cyanosis Plan Problems: (1) Choledocholithiasis Assessment & Plan: 68F with epi/ruq abd pain, hx of gallstones, leukocytosis, afebrile, nml lft's. US as below iv fluids iv abx MRCP noted okay for diet d/c planning as per GI with outpatient tertiary center f/u for stone removal discussed care plan with son who expressed understanding will follow with recs thank you Impression: Markedly dilated pancreatic duct, with evidence of a 1 cm stone within the downstream pancreatic duct near the ampulla. Uncertain as to whether the ductal dilatation is due to obstruction by stone, versus related to chronic calcifying pancreatitis (pancreatic calcifications demonstrated on recent sonogram post ( versus occult pancreatic head mass. Consider further evaluation with endoscopic sonography. Dilated common bile duct, without a definite common duct stone. There may be prominence to the papilla, and ampullary tumor is therefore not excludable. Cholelithiasis Note phrygian cap anatomy to the gallbladder-normal anatomic variant Findings: Gallbladder demonstrates gallstones in the neck. No gallbladder wall thickening or pericholecystic fluid is also sludge in the gallbladder. Technologist reports that the sonographic Abdalla's sign is positive. Common bile duct measures 13 mm in diameter. There is mild central intrahepatic biliary ductal dilatation.. Liver demonstrates normal echogenicity, no focal abnormality. Portal vein and hepatic veins are patent. The pancreas demonstrates heterogeneous echogenicity and likely multiple calcifications. Spleen is unremarkable. Left kidney measures 9.7 cm in length. Right kidney measures 11.5 cm length. Both kidneys demonstrate normal echogenicity. There is no hydronephrosis. No focal abnormality . Abdominal aorta is partially obscured by bowel gas, visualized portions are non-aneurysmal . Impression: Cholelithiasis and gallbladder sludge. Positive sonographic Abdalla' s sign raises concern for acute cholecystitis. Consider hepatobiliary nuclear scanning if there is high clinical suspicion Dilated common bile duct and mild central intrahepatic biliary ductal dilatation. This is concerning for downstream obstruction. Heterogeneous pancreas with possible calcifications, could indicate chronic pancreatitis Note incomplete visualization of the distal abdominal aorta Rudy Guadarrama Feb 03, 2019 15:09
--- NOTE | 2019-02-03 15:58 | Hematology/Onc Progress Note ---
Assessment/Plan Assessment/Plan # Thrombocytopenia - potential causes multifactorial, evaluate liver and viral etiologies to begin, also could be due to inflamm process from stone --> Hep panel pending, HIV negative --> US abd and mri doesn't show cirrhosis/or large spleen --> Peripheral smear ordered to evaluate for blasts /schistocytes --> abx and other meds have been reviewed --> ok for ppx if plt >50k w/ either heparin or lovenox --> Transfuse if Plt < 20k and fever, or if Plt < 10k without fever --> plt trend: 127k # Anemia of chronic disease (or of iron deficiency) due to underlying chronic medical issues, multifactorial --> Hgb currently >10, no w/u required at this time --> No evidence of hemolysis is noted, peripheral smear has been reviewed. --> Hgb goal >7. Transfuse prn. --> Epogen or iron at this time is not particularly indicated --> Medications have been reviewed --> hgb trend: 10.8 --> low threshold for gi evaluation in case has occult + --> bone marrow biopsy is not indicated given the other more likely causes # Abd pain may be due to dilated CBD --> pancreatic duct stone with dilated pancreatic duct --> gi /surg care --> pending potential transf # Dvt ppx scds The timing of this note does not necessarily reflect the time of the patient was seen. Greatly appreciate consultation. Subjective Allergies: Coded Allergies: No Known Allergies (Unverified , 01/30/19) Subjective 02/01: no events, plt is somewhat lower, get hep and hiv panels 02/02:hiv negative, hep panel pending, lovenox discontinued 02/03: no acute events, no f/c, vs stable, dc planning Objective Objective Current Medications Medications (Trade) Dose Ordered Sig/J Luis Route PRN Reason Start Time Stop Time Status Last Admin Dose Admin Amylase/Lipase/ Protease (Zenpep) 4 ea THREE TIMES A DAY ORAL 02/01/19 13:00 03/03/19 12:59 02/03/19 14:54 Dextrose (Dextrose 50%) 25 ml Q30M PRN IV Hypoglycemia 01/30/19 23:15 03/01/19 23:14 Insulin Aspart (NovoLOG) AC+HS SUBQ 9/10/19 06:30 03/02/19 06:29 02/03/19 11:54 Morphine Sulfate (Morphine Sulfate) 2 mg Q4H PRN IVP For Pain (4-10) 01/30/19 23:15 02/06/19 23:14 Ondansetron HCl (Zofran) 4 mg Q6H PRN IVP Nausea & Vomiting 01/30/19 23:15 03/01/19 23:14 Pantoprazole (Protonix) 40 mg DAILY@0630 IVP 01/31/19 06:30 03/02/19 06:29 02/03/19 05:49 Piperacillin Sod/ Tazobactam Sod 3.375 gm/Sodium Chloride 110 ml @ 27.5 mls/hr EVERY 8 HOURS IVPB 01/31/19 06:00 02/05/19 05:59 02/03/19 14:54 Last 24 Hour Vital Signs Date Time Temp Pulse Resp B/P (MAP) Pulse Ox O2 Delivery O2 Flow Rate FiO2 02/03/19 12:00 97.7 47 20 133/60 (84) 99 02/03/19 09:00 Room Air Room Air 02/03/19 08:00 98.8 56 18 120/64 (82) 95 02/03/19 04:00 98.4 58 18 122/60 (80) 98 02/03/19 00:00 97.9 60 18 135/65 (88) 96 02/02/19 21:00 Room Air 02/02/19 20:00 99.0 57 18 120/61 (80) 97 02/02/19 16:00 97.6 56 18 133/60 (84) 98 02/02/19 12:00 97.5 50 18 122/61 (81) 99 02/02/19 09:00 Room Air 02/02/19 08:00 98.2 59 18 137/73 (94) 98 02/02/19 03:55 98.5 53 18 122/57 (78) 97 02/02/19 00:00 98.2 51 19 115/61 (79) 98 02/01/19 21:00 Room Air 02/01/19 20:00 98.1 52 18 124/57 (79) 97 02/01/19 16:00 98.5 58 18 105/58 (74) 96 Intake and Output 02/02/19 02/03/19 19:00 07:00 Intake Total 500 ml 337.5 ml Balance 500 ml 337.5 ml Intake Oral 400 ml IV Total 100 ml 337.5 ml # Voids 4 3 # Bowel Movements 1 Labs Test 02/01/19 05:30 02/02/19 04:45 White Blood Count 5.5 K/UL (4.8-10.8) 4.0 K/UL (4.8-10.8) Red Blood Count 3.52 M/UL (4.20-5.40) 3.58 M/UL (4.20-5.40) Hemoglobin 10.5 G/DL (12.0-16.0) 10.8 G/DL (12.0-16.0) Hematocrit 31.7 % (37.0-47.0) 32.6 % (37.0-47.0) Mean Corpuscular Volume 90 FL (80-99) 91 FL (80-99) Mean Corpuscular Hemoglobin 29.8 PG (27.0-31.0) 30.1 PG (27.0-31.0) Mean Corpuscular Hemoglobin Concent 33.1 G/DL (32.0-36.0) 33.1 G/DL (32.0-36.0) Red Cell Distribution Width 12.5 % (11.6-14.8) 12.7 % (11.6-14.8) Platelet Count 112 K/UL (150-450) 127 K/UL (150-450) Mean Platelet Volume 8.6 FL (6.5-10.1) 10.2 FL (6.5-10.1) Neutrophils (%) (Auto) 70.0 % (45.0-75.0) 51.2 % (45.0-75.0) Lymphocytes (%) (Auto) 20.8 % (20.0-45.0) 38.1 % (20.0-45.0) Monocytes (%) (Auto) 6.1 % (1.0-10.0) 6.0 % (1.0-10.0) Eosinophils (%) (Auto) 2.6 % (0.0-3.0) 4.0 % (0.0-3.0) Basophils (%) (Auto) 0.6 % (0.0-2.0) 0.7 % (0.0-2.0) Sodium Level 144 MMOL/L (136-145) 147 MMOL/L (136-145) Potassium Level 3.7 MMOL/L (3.5-5.1) 3.7 MMOL/L (3.5-5.1) Chloride Level 111 MMOL/L (98-107) 115 MMOL/L (98-107) Carbon Dioxide Level 26 MMOL/L (21-32) 24 MMOL/L (21-32) Anion Gap 7 mmol/L (5-15) 8 mmol/L (5-15) Blood Urea Nitrogen 7 mg/dL (7-18) 3 mg/dL (7-18) Creatinine 0.8 MG/DL (0.55-1.30) 0.8 MG/DL (0.55-1.30) Estimat Glomerular Filtration Rate > 60 mL/min (>60) > 60 mL/min (>60) Glucose Level 163 MG/DL (74-106) 125 MG/DL (74-106) Calcium Level 8.2 MG/DL (8.5-10.1) 8.3 MG/DL (8.5-10.1) Total Bilirubin 0.4 MG/DL (0.2-1.0) 0.3 MG/DL (0.2-1.0) Aspartate Amino Transf (AST/SGOT) 28 U/L (15-37) 32 U/L (15-37) Alanine Aminotransferase (ALT/SGPT) 24 U/L (12-78) 32 U/L (12-78) Alkaline Phosphatase 109 U/L (46-116) 114 U/L (46-116) Total Protein 6.1 G/DL (6.4-8.2) 5.9 G/DL (6.4-8.2) Albumin 2.6 G/DL (3.4-5.0) 2.4 G/DL (3.4-5.0) Globulin 3.5 g/dL 3.5 g/dL Albumin/Globulin Ratio 0.7 (1.0-2.7) 0.7 (1.0-2.7) Vitamin B12 Level 362 PG/ML (193-986) HIV (1&2) Antibody Rapid Negative (NEGATIVE) Height (Feet): 4 Height (Inches): 11.00 Weight (Pounds): 123 Objective Physical Exam: Vitals: reviewed General Appearance: NAD HEENT: normocephalic, atraumatic Neck: non-tender, normal alignment Respiratory/Chest: normal breath sounds bilaterally Cardiovascular/Chest: normal peripheral pulses, normal rate Abdomen: normal bowel sounds, soft, nontender Extremities: normal range of motion Cuco Erwin MD Feb 03, 2019 15:58
[2019-02-03 16:00] VITALS: BP 143/60
--- NOTE | 2019-02-03 17:01 | NUR ---
NURSE NOTES: Dr. Vasquez explained that he needs to see the patient and see the 2d echo images himself before clearance for discharge. Called and explained the discharge delay to son and patient. Will continue to monitor.
--- NOTE | 2019-02-03 19:57 | Infectious Diseases Prog Note ---
Assessment/Plan Problems: (1) Choledocholithiasis Assessment & Plan: with no gallbladder wall thickening or edema or fluids around it, doubt cholecystitis , MRCP possible distal panceriatic duct stone VS tumor , may need EUS to confirm , continue zosyn empirically for now surgery AND GI are following (2) Abdominal pain Assessment & Plan: due to the above with possible passing stone, continue pain management as primary Subjective Constitutional: Reports: no symptoms HEENT: Reports: no symptoms Respiratory: Reports: no symptoms Breasts: Reports: no symptoms Cardiovascular: Reports: no symptoms Gastrointestinal/Abdominal: Reports: no symptoms Genitourinary: Reports: no symptoms Neurologic: Reports: no symptoms Psychiatric: Reports: no symptoms Skin: Reports: no symptoms Endocrine: Reports: no symptoms Hematologic: Reports: no symptoms Musculoskeletal: Reports: no symptoms Allergies: Coded Allergies: No Known Allergies (Unverified , 01/30/19) Objective Vital Signs Last 24 Hour Vital Signs Date Time Temp Pulse Resp B/P (MAP) Pulse Ox O2 Delivery O2 Flow Rate FiO2 02/03/19 16:00 97.7 52 20 143/60 (87) 98 02/03/19 12:00 97.7 47 20 133/60 (84) 99 02/03/19 09:00 Room Air Room Air 02/03/19 08:00 98.8 56 18 120/64 (82) 95 02/03/19 04:00 98.4 58 18 122/60 (80) 98 02/03/19 00:00 97.9 60 18 135/65 (88) 96 02/02/19 21:00 Room Air 02/02/19 20:00 99.0 57 18 120/61 (80) 97 Height (Feet): 4 Height (Inches): 11.00 Weight (Pounds): 123 General Appearance: WD/WN, no acute distress HEENT: normocephalic, atraumatic, anicteric, mucous membranes moist, PERRL Respiratory/Chest: chest wall non-tender, lungs clear, normal breath sounds, no respiratory distress, no accessory muscle use Cardiovascular: normal peripheral pulses, normal rate, regular rhythm, no gallop/murmur, no JVD Abdomen: normal bowel sounds, soft, non tender, no organomegaly, non distended , no mass, no scars Genitourinary: normal external genitalia Extremities: no cyanosis, no clubbing Skin: no rash, no lesions, no ulcers 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, alert, responsive Lymphatic: no neck adenopathy, no groin adenopathy Musculoskeletal: normal muscle bulk Current Medications Medications (Trade) Dose Ordered Sig/J Luis Route PRN Reason Start Time Stop Time Status Last Admin Dose Admin Amylase/Lipase/ Protease (Zenpep) 4 ea THREE TIMES A DAY ORAL 02/01/19 13:00 03/03/19 12:59 02/03/19 18:18 Dextrose (Dextrose 50%) 25 ml Q30M PRN IV Hypoglycemia 01/30/19 23:15 03/01/19 23:14 Insulin Aspart (NovoLOG) AC+HS SUBQ 01/31/19 06:30 03/02/19 06:29 02/03/19 11:54 Morphine Sulfate (Morphine Sulfate) 2 mg Q4H PRN IVP For Pain (4-10) 01/30/19 23:15 02/06/19 23:14 Ondansetron HCl (Zofran) 4 mg Q6H PRN IVP Nausea & Vomiting 01/30/19 23:15 03/01/19 23:14 Pantoprazole (Protonix) 40 mg DAILY@0630 IVP 01/31/19 06:30 03/02/19 06:29 02/03/19 05:49 Piperacillin Sod/ Tazobactam Sod 3.375 gm/Sodium Chloride 110 ml @ 27.5 mls/hr EVERY 8 HOURS IVPB 01/31/19 06:00 02/05/19 05:59 02/03/19 14:54 Janes Bolaños M.D. Feb 03, 2019 19:56
[2019-02-03 20:00] VITALS: BP 119/62
--- NOTE | 2019-02-03 21:10 | Cardiology Progress Note ---
Assessment/Plan Assessment/Plan The patient is seen and examined, full consult note will be dictated. Objective Last 24 Hour Vital Signs Date Time Temp Pulse Resp B/P (MAP) Pulse Ox O2 Delivery O2 Flow Rate FiO2 02/03/19 16:00 97.7 52 20 143/60 (87) 98 02/03/19 12:00 97.7 47 20 133/60 (84) 99 02/03/19 09:00 Room Air Room Air 02/03/19 08:00 98.8 56 18 120/64 (82) 95 02/03/19 04:00 98.4 58 18 122/60 (80) 98 02/03/19 00:00 97.9 60 18 135/65 (88) 96 Intake and Output 02/02/19 02/03/19 19:00 07:00 Intake Total 500 ml 337.5 ml Balance 500 ml 337.5 ml Intake Oral 400 ml IV Total 100 ml 337.5 ml # Voids 4 3 # Bowel Movements 1 Arash Vasquez MD Feb 03, 2019 21:10
--- NOTE | 2019-02-03 22:34 | NUR ---
DISCHARGE NOTE: Pt is A/Ox4 with stable VS. Physical assessment completed and orders reviewed. Skin is intact. Discharge instructions reviewed with patient and family. Pt and family verbalized understanding of discharge instructions. Folder with instructions given to family along with hard copy prescription for Cipro and facility list for outpatient follow-up. Right AC PIV removed without complications. Pt did not have any belongings at the bedside besides the clothes that she was wearing. Pt denied any pain. Scheduled meds administered. IV Zosyn was unable to complete because patient did not want to wait the for the remaining 3 hr and 30 mins of administration. Pt will go home with family.
--- NOTE | 2019-02-04 13:19 | Cardiology Report ---
APPROVED REPORT EKG Measurement Heart [id number] Sinus bradycardia Possible Lateral infarct, age undetermined Abnormal ECG
--- NOTE | 2019-02-05 17:45 | Discharge Summary ---
Discharge Summary Discharge Summary _ DATE OF ADMISSION: 01/30/2019 DATE OF DISCHARGE: 02/03/2019 DISCHARGED BY: Dr. Yemi Zapien CONSULTANTS: Dr. Arash Chang [facility] COURSE: Patient is a 68-year-old female, with unremarkable past medical history, presented to ED due to pain in the upper abdomen. Patient reported pain was present for 3 days. She denied any bleeding or diarrhea. Denied any fever or chills. She has medical history significant for hyperlipidemia and diabetes. Upon evaluation at the ED, vital signs were stable. Blood work showed WBC 11.3. Hemoglobin and hematocrit were stable. Potassium was 3.1. Sodium 142. Kidney function normal. LFTs normal. Amylase and lipase normal. Troponin negative. Urinalyses submitted showed +1 leukocyte esterase, 2-4 urine RBC, 0- 2 urine WBC. She was noted to have persistent pain in the upper abdomen as well as Eleonora liver gallbladder. Abdominal ultrasound showed 13 mm CBD dilated pancreatic duct. She was given pain medication. She was given IV Zosyn. She was admitted for evaluation of acute biliary colic. She was placed on n.p.o. She was given IV fluids. She was started on Zosyn. Surgery and GI consulted. MRCP showed a 1 cm stone within the downstream pancreatic duct near the ampulla. Patient needs outpatient referral to a tertiary center for pancreatic duct stone removal. She was given Creon. Patient had thrombocytopenia. There was no hepatomegaly or splenomegaly. HIV and hepatitis screen negative. Anemia was stable. Patient was discharged home. Informed family need to go to tertiary care center for pancreatic duct removal. FINAL DIAGNOSES: Choledocholithiasis Pancreatic duct stone Biliary colic Acute gastritis Type 2 diabetes Hyperlipidemia Hypokalemia Chronic pancreatitis Thrombocytopenia Anemia of chronic disease DISPOSITION: Patient was discharged home. DISCHARGE MEDICATIONS: Refer to Discharge Medication List. DISCHARGE INSTRUCTIONS: Follow-up in a week. I have been assigned to complete a discharge summary on this account, I was not involved with the patient's management.--DENAE Lopez Jacqueline Robles NP Feb 05, 2019 17:45
--- NOTE | 2019-02-06 08:50 | Cardiology Report ---
APPROVED REPORT EXAM: Two-dimensional and M-mode echocardiogram with Doppler and color Doppler. INDICATION Bradycardia M-Mode DIMENSIONS IVSd1.0 (0.7-1.1cm)Left Atrium (MM)2.4 (1.6-4.0cm) LVDd3.5 (3.5-5.6cm)Aortic Root2.7 (2.0-3.7cm) PWd0.9 (0.7-1.1cm)Aortic Cusp Exc.1.6 (1.5-2.0cm) LVDs2.4 (2.5-4.0cm) PWs1.1 cm Normal left ventricular chamber size, systolic function and wall motion. Left ventricular ejection fraction estimated to be 60-65%. No left ventricular hypertrophy. No evidence of pericardial effusion. All other cardiac chamber sizes are within normal limits. Focal aortic valve sclerosis with adequate cusp excursion. Thickened mitral valve leaflets with normal excursion. Mitral annulus and aortic root calcification. Pulmonic valve not well visualized. Normal tricuspid valve structure. IVC at 2.2 cm with slight physiologic collapse suggestive of mildly elevated RAP. A color flow and spectral Doppler study was performed and revealed: No aortic regurgitation. Trace mitral regurgitation. Mitral inflow velocities indicate normal LV diastolic function. Mild tricuspid regurgitation. Tricuspid systolic velocities suggests peak right ventricular systolic pressure of 39 mmHg, consistent with mild pulmonary hypertension. Trace pulmonic regurgitation present.
== END 2019-02-03 22:05 | disposition home or self-care (01) | DRG 445 ==
LOC: EMR 18:30 → 3E 20:05 → EDBEDREQ 21:25
DX: K80.50 Calculus of bile duct without cholangitis or cholecystitis without obstruction (principal); K86.1 Other chronic pancreatitis; K86.89 Other specified diseases of pancreas; K29.00 Acute gastritis without bleeding; E11.9 Type 2 diabetes mellitus without complications; E78.5 Hyperlipidemia, unspecified; E87.6 Hypokalemia; D69.6 Thrombocytopenia, unspecified; D63.8 Anemia in other chronic diseases classified elsewhere; Z79.84 Long term (current) use of oral hypoglycemic drugs
CPT/HCPCS: 36415; 74181; 76700; 80053; 80061; 81003; 82150; 82607; 82962; 83036; 83690; 84443; 84484; 85025; 86703; 86705; 86709; 86803; 86850; 86900; 86901; 87340; 93005; 93306; 96365; 96375; 99285; J1815; J2405